=== PATIENT | male | born 1975 | race African-American/Black ===

== ENCOUNTER 2018-10-04 13:24 | Inpatient (IN) ==
[2018-10-04 15:09] LABS: Basophils # 0.1 10*3/uL (0.0-0.2); Basophils % 0.5 % (0.0-0.8); Eosinophils # 0.2 10*3/uL (0.0-0.87); Eosinophils % 1.7 % (0.00-10.9); Hematocrit 42.2 VOL% (42.0-52.0); Hemoglobin 13.2 GM/DL (14.0-18.0); Immature Granulocytes % 0.3 %; Immature Granulocytes Absolute 0.03 #; Lymphocytes # 2.5 10*3/uL (1.4-4.0); Lymphocytes % 25.4 % (21.2-54.2); Mean Corpuscular HGB Conc 31.3 GM/DL (32-36); Mean Corpuscular Hemoglobin 31 PG (27-34); Mean Corpuscular Volume 99.3 FL (87-102); Mean Platelet Volume 11.9 FL (9.6-12.0); Monocytes # 0.7 10*3/uL (0.11-0.8); Monocytes % 7.6 % (1.7-12.7); Neutrophils # 6.3 10*3/uL (1.4-7.4); Neutrophils % 64.5 % (38.7-73.9); Platelet Count 135 T/CUMM (130-400); Red Blood Count 4.25 MC/CUMM (3.8-5.5); Red Cell Distribution Width 13.4 % (9.3-17.3); White Blood Count 9.8 T/CUMM (4-12)
[2018-10-04 15:25] LABS: Albumin 4.1 G/DL (3.4-5.0); Bilirubin,Total 1.7 MG/DL (0.2-1.0); Calcium 8.7 MG/DL (8.5-10.1); Osmolality,Calculated 279.5 MOS/KG (273-304); Potassium 4.8 MMOL/L (3.5-5.1)
[2018-10-04 18:27] LABS: Amorphous Crystals,Urine Occasional /HPF (Few); Apearance,Urine CLOUDY (Clear); Bilirubin,Urine Negative (Negative); Blood, Urine Negative (Negative); Glucose,Urine (UA) Negative (Negative); Ketones,Urine 5 mg/dL (Negative); Nitrite,Urine Negative (Negative); Protein,Urine >=500 MG/DL; Urine Color Yellow (Yellow); Urine Specific Gravity 1.028 (1.001-1.035); Urine Urobilinogen < 2.0 EU/DL (0.2-1.0)
[2018-10-04] MEDS ORDERED: ACETAMINOPHEN 325 MG TABLET PO PRN (18:54)
[2018-10-04] MEDS: ONDANSETRON 4 MG/2 ML VIAL IV PRN (20:45)
[2018-10-04] MEDS: SODIUM CHLORIDE 0.9% 1,000 ML IV SCH (20:45)
[2018-10-04] MEDS: LOSARTAN 25 MG TABLET PO SCH (22:25)
[2018-10-04] MEDS: CARVEDILOL 12.5 MG TABLET PO SCH (22:25)
[2018-10-04] MEDS: AMPICILLIN/SULBACTAM 3,000 MG in SODIUM CHLORIDE 0.9% 100 ML IV SCH (22:26)
[2018-10-04] MEDS: ENOXAPARIN 40 MG/0.4 ML SYRINGE SUBCUT SCH (22:26)
[2018-10-05] MEDS: AMPICILLIN/SULBACTAM 3,000 MG in SODIUM CHLORIDE 0.9% 100 ML IV SCH ×4 (03:41→20:50)
[2018-10-05] MEDS ORDERED: MORPHINE 4 MG/1 ML VIAL IV PRN (03:48)
[2018-10-05] MEDS: HYDROmorphone 2 MG/1 ML VIAL IV PRN (04:06)
[2018-10-05] MEDS: ONDANSETRON 4 MG/2 ML VIAL IV PRN (04:07)
[2018-10-05 05:25] LABS: Basophils # 0.1 10*3/uL (0.0-0.2); Basophils % 0.7 % (0.0-0.8); Eosinophils # 0.1 10*3/uL (0.0-0.87); Eosinophils % 1.3 % (0.00-10.9); Hematocrit 39.6 VOL% (42.0-52.0); Hemoglobin 12.4 GM/DL (14.0-18.0); Immature Granulocytes % 0.4 %; Immature Granulocytes Absolute 0.04 #; Lymphocytes # 2.9 10*3/uL (1.4-4.0); Lymphocytes % 27.3 % (21.2-54.2); Mean Corpuscular HGB Conc 31.3 GM/DL (32-36); Mean Corpuscular Hemoglobin 31 PG (27-34); Mean Corpuscular Volume 97.5 FL (87-102); Monocytes # 0.9 10*3/uL (0.11-0.8); Monocytes % 8.2 % (1.7-12.7); NRBC # 0.02 10*3/uL; Neutrophils # 6.6 10*3/uL (1.4-7.4); Neutrophils % 62.1 % (38.7-73.9); Platelet Count 137 T/CUMM (130-400); Red Blood Count 4.06 MC/CUMM (3.8-5.5); Red Cell Distribution Width 13.3 % (9.3-17.3); White Blood Count 10.6 T/CUMM (4-12)
[2018-10-05 05:50] LABS: Albumin 3.7 G/DL (3.4-5.0); Calcium 8.1 MG/DL (8.5-10.1); Osmolality,Calculated 276.8 MOS/KG (273-304); Potassium 4.3 MMOL/L (3.5-5.1); Risk Ratio 2.57; Thyroid Stimulating Hormone 6.04 uIU/ml (0.358-3.74); Total Protein 6.5 G/DL (6.4-8.3); VLDL CHOLESTEROL 13.2 MG/DL
[2018-10-05] MEDS: SPIRONOLACTONE 25 MG TABLET PO SCH (08:31)
[2018-10-05] MEDS: ATORVASTATIN 20 MG TABLET PO SCH (08:31)
[2018-10-05] MEDS: CARVEDILOL 12.5 MG TABLET PO SCH ×2 (08:31→17:03)
[2018-10-05 11:21] LABS: Hepatitis A Ab IgM Quant 0.12 Index; Hepatitis A Ab IgM Result Negative (Negative); Hepatitis B Core IgM Quant 0.12 Index; Hepatitis B Core IgM Result Negative (Negative); Hepatitis B Surface Ag Quant 0.15 Index; Hepatitis B Surface Ag Result Negative (Negative); Hepatitis C Virus Ab Quant 0.02 Index; Hepatitis C Virus Ab Result Negative (Negative)
[2018-10-05] MEDS: FUROSEMIDE 40 MG/4 ML VIAL IV SCH (15:10)
[2018-10-05] MEDS: LOSARTAN 25 MG TABLET PO SCH (20:49)
[2018-10-05] MEDS: ENOXAPARIN 40 MG/0.4 ML SYRINGE SUBCUT SCH (20:49)
[2018-10-05] MEDS: SODIUM CHLORIDE 0.9% 1,000 ML IV SCH (21:27)
[2018-10-06] MEDS: ONDANSETRON 4 MG/2 ML VIAL IV PRN ×3 (00:18→12:51)
[2018-10-06] MEDS: HYDROmorphone 2 MG/1 ML VIAL IV PRN ×2 (00:19→12:50)
[2018-10-06] MEDS: AMPICILLIN/SULBACTAM 3,000 MG in SODIUM CHLORIDE 0.9% 100 ML IV SCH ×3 (02:30→15:14)
[2018-10-06 04:49] LABS: Basophils # 0.1 10*3/uL (0.0-0.2); Basophils % 0.6 % (0.0-0.8); Eosinophils # 0.2 10*3/uL (0.0-0.87); Hematocrit 38.6 VOL% (42.0-52.0); Hemoglobin 12.1 GM/DL (14.0-18.0); Immature Granulocytes % 0.3 %; Immature Granulocytes Absolute 0.03 #; Lymphocytes % 22.8 % (21.2-54.2); Mean Corpuscular HGB Conc 31.3 GM/DL (32-36); Mean Corpuscular Hemoglobin 31 PG (27-34); Mean Platelet Volume 12.5 FL (9.6-12.0); Monocytes # 0.9 10*3/uL (0.11-0.8); Monocytes % 10.1 % (1.7-12.7); Neutrophils # 5.6 10*3/uL (1.4-7.4); Neutrophils % 64.2 % (38.7-73.9); Platelet Count 129 T/CUMM (130-400); Red Blood Count 3.94 MC/CUMM (3.8-5.5); Red Cell Distribution Width 13.2 % (9.3-17.3); White Blood Count 8.8 T/CUMM (4-12)
[2018-10-06 05:06] LABS: Calcium 7.8 MG/DL (8.5-10.1); Osmolality,Calculated 281.4 MOS/KG (273-304); Potassium 4.2 MMOL/L (3.5-5.1)
[2018-10-06 05:09] LABS: Albumin 3.6 G/DL (3.4-5.0); Bilirubin,Total 1.9 MG/DL (0.2-1.0); Calcium 7.8 MG/DL (8.5-10.1); Osmolality,Calculated 279.5 MOS/KG (273-304); Potassium 4.2 MMOL/L (3.5-5.1); Total Protein 6.4 G/DL (6.4-8.3)
[2018-10-06] MEDS: LEVOTHYROXINE 150 MCG TABLET PO SCH (06:08)
[2018-10-06] MEDS: CARVEDILOL 12.5 MG TABLET PO SCH ×2 (09:09→16:47)
[2018-10-06] MEDS: FUROSEMIDE 40 MG/4 ML VIAL IV SCH ×2 (09:09→15:11)
[2018-10-06] MEDS: SPIRONOLACTONE 25 MG TABLET PO SCH (09:09)
[2018-10-06] MEDS: ATORVASTATIN 20 MG TABLET PO SCH (09:09)
[2018-10-06] MEDS: ENOXAPARIN 40 MG/0.4 ML SYRINGE SUBCUT SCH (20:52)
[2018-10-06] MEDS: LOSARTAN 25 MG TABLET PO SCH (21:56)
[2018-10-07] MEDS: HYDROmorphone 2 MG/1 ML VIAL IV PRN ×3 (00:28→21:31)
[2018-10-07] MEDS: ONDANSETRON 4 MG/2 ML VIAL IV PRN ×2 (00:30→11:06)
[2018-10-07] MEDS: AMPICILLIN/SULBACTAM 3,000 MG in SODIUM CHLORIDE 0.9% 100 ML IV SCH ×4 (00:35→17:00)
[2018-10-07 04:59] LABS: Basophils # 0.1 10*3/uL (0.0-0.2); Basophils % 0.5 % (0.0-0.8); Eosinophils # 0.2 10*3/uL (0.0-0.87); Eosinophils % 2.4 % (0.00-10.9); Immature Granulocytes % 0.3 %; Immature Granulocytes Absolute 0.03 #; Lymphocytes # 2.5 10*3/uL (1.4-4.0); Lymphocytes % 25.5 % (21.2-54.2); Mean Corpuscular HGB Conc 31.6 GM/DL (32-36); Mean Corpuscular Hemoglobin 31 PG (27-34); Mean Corpuscular Volume 97.4 FL (87-102); Mean Platelet Volume 11.9 FL (9.6-12.0); Monocytes % 10.4 % (1.7-12.7); Neutrophils # 5.9 10*3/uL (1.4-7.4); Neutrophils % 60.9 % (38.7-73.9); Platelet Count 131 T/CUMM (130-400); Red Cell Distribution Width 13.2 % (9.3-17.3); White Blood Count 9.7 T/CUMM (4-12)
[2018-10-07 05:16] LABS: Albumin 3.6 G/DL (3.4-5.0); Bilirubin,Total 1.9 MG/DL (0.2-1.0); Calcium 7.8 MG/DL (8.5-10.1); Osmolality,Calculated 278.5 MOS/KG (273-304); Potassium 3.4 MMOL/L (3.5-5.1); Total Protein 6.4 G/DL (6.4-8.3)
[2018-10-07] MEDS: LEVOTHYROXINE 150 MCG TABLET PO SCH (05:54)
[2018-10-07] MEDS ORDERED: MIDAZOLAM 2 MG/2 ML VIAL IV ONE (09:16)
[2018-10-07] MEDS ORDERED: fentaNYL 100 MCG/2 ML VIAL IV ONE (09:16)
[2018-10-07] MEDS ORDERED: DIAZEPAM 5 MG TABLET PO ONE (09:16)
[2018-10-07 09:25] LABS: PT Patient Result 21.2 SECS
[2018-10-07] MEDS: FUROSEMIDE 40 MG/4 ML VIAL IV SCH ×2 (09:38→16:41)
[2018-10-07] MEDS: CARVEDILOL 12.5 MG TABLET PO SCH ×2 (09:38→16:42)
[2018-10-07] MEDS: SPIRONOLACTONE 25 MG TABLET PO SCH (09:40)
[2018-10-07] MEDS: ATORVASTATIN 20 MG TABLET PO SCH (09:41)
[2018-10-07] MEDS ORDERED: fentaNYL 100 MCG/2 ML VIAL ONE (10:49)
[2018-10-07] MEDS ORDERED: MIDAZOLAM 2 MG/2 ML VIAL ONE (10:49)
[2018-10-07] MEDS ORDERED: ONDANSETRON 4 MG/2 ML VIAL ONE (10:50)
[2018-10-07] MEDS ORDERED: POTASSIUM CHLORIDE 20 MEQ TABLET PO PRN (11:41)
[2018-10-07] MEDS: ENOXAPARIN 40 MG/0.4 ML SYRINGE SUBCUT SCH (21:30)
[2018-10-07] MEDS: LOSARTAN 25 MG TABLET PO SCH (21:31)
[2018-10-08] MEDS: AMPICILLIN/SULBACTAM 3,000 MG in SODIUM CHLORIDE 0.9% 100 ML IV SCH ×3 (00:09→11:13)
[2018-10-08] MEDS: HYDROmorphone 2 MG/1 ML VIAL IV PRN (03:52)
[2018-10-08] MEDS: LEVOTHYROXINE 150 MCG TABLET PO SCH (06:20)
[2018-10-08] MEDS: SPIRONOLACTONE 25 MG TABLET PO SCH (08:21)
[2018-10-08] MEDS: FUROSEMIDE 40 MG/4 ML VIAL IV SCH (08:22)
[2018-10-08] MEDS: CARVEDILOL 12.5 MG TABLET PO SCH (08:22)
[2018-10-08] MEDS: ATORVASTATIN 20 MG TABLET PO SCH (08:22)
[2018-10-08 12:06] VITALS: BP 93/70
== END 2018-10-08 13:42 | disposition home or self-care (01) | DRG 444 ==
LOC: N.ED 13:24 → N.EDINP 18:52 → N.3E 21:00
PROVIDERS: ADMIT Internal Medicine Geriatric Medicine; ATTEND Internal Medicine Geriatric Medicine

== ENCOUNTER 2018-10-09 21:53 | Observation (INO) ==
[2018-10-09] MEDS ORDERED: ONDANSETRON 4 MG/2 ML VIAL IV STA (22:52)
[2018-10-09 23:48] LABS: Basophils # 0.1 10*3/uL (0.0-0.2); Basophils % 0.6 % (0.0-0.8); Eosinophils # 0.3 10*3/uL (0.0-0.87); Hematocrit 43.9 VOL% (42.0-52.0); Hemoglobin 13.8 GM/DL (14.0-18.0); Immature Granulocytes % 0.3 %; Immature Granulocytes Absolute 0.03 #; Lymphocytes # 2.7 10*3/uL (1.4-4.0); Lymphocytes % 27.5 % (21.2-54.2); Mean Corpuscular HGB Conc 31.4 GM/DL (32-36); Mean Corpuscular Hemoglobin 31 PG (27-34); Mean Corpuscular Volume 98.4 FL (87-102); Mean Platelet Volume 11.8 FL (9.6-12.0); Monocytes # 0.7 10*3/uL (0.11-0.8); Monocytes % 6.8 % (1.7-12.7); Neutrophils % 61.8 % (38.7-73.9); Platelet Count 162 T/CUMM (130-400); Red Blood Count 4.46 MC/CUMM (3.8-5.5); Red Cell Distribution Width 13.3 % (9.3-17.3); White Blood Count 9.7 T/CUMM (4-12)
[2018-10-10 00:04] LABS: Bilirubin,Total 1.5 MG/DL (0.2-1.0); Calcium 8.4 MG/DL (8.5-10.1); Osmolality,Calculated 279.3 MOS/KG (273-304); Potassium 3.9 MMOL/L (3.5-5.1); Total Protein 7.6 G/DL (6.4-8.3)
[2018-10-10 00:13] LABS: Apearance,Urine CLEAR (Clear); Bilirubin,Urine Negative (Negative); Blood, Urine Negative (Negative); Glucose,Urine (UA) Negative (Negative); Ketones,Urine Negative (Negative); Nitrite,Urine Negative (Negative); Protein,Urine Negative; Urine Color Straw (Yellow); Urine Specific Gravity 1.004 (1.001-1.035); Urine Urobilinogen < 2.0 EU/DL (0.2-1.0)
[2018-10-10] MEDS ORDERED: KETOROLAC 30 MG/1 ML VIAL IV STA (00:13)
[2018-10-10] MEDS ORDERED: SODIUM CHLORIDE 0.9% 1,000 ML IV STA (00:22)
[2018-10-10] MEDS ORDERED: ONDANSETRON 4 MG/2 ML VIAL IV PRN (01:13)
[2018-10-10] MEDS ORDERED: LOPERAMIDE 2 MG CAPSULE PO PRN (01:16)
[2018-10-10] MEDS ORDERED: DICLOFENAC POTASSIUM 50 MG PO PRN (01:16)
[2018-10-10] MEDS ORDERED: FLUTICASONE 50 MCG NASAL SPRAY 16 GM BOTTLE BOTH NARES PRN (01:16)
[2018-10-10] MEDS ORDERED: diphenhydrAMINE CAP 25 MG CAPSULE PO PRN (01:16)
[2018-10-10] MEDS ORDERED: ACETAMINOPHEN 325 MG TABLET PO PRN (01:16)
[2018-10-10] MEDS: LEVOTHYROXINE 150 MCG TABLET PO SCH (06:21)
[2018-10-10 07:02] LABS: INR 1.6; PT Patient Result 17.2 SECS
[2018-10-10 07:14] LABS: Albumin 3.4 G/DL (3.4-5.0); Bilirubin,Total 2.2 MG/DL (0.2-1.0); Calcium 8.2 MG/DL (8.5-10.1); Osmolality,Calculated 277.4 MOS/KG (273-304); Potassium 3.7 MMOL/L (3.5-5.1); Total Protein 6.6 G/DL (6.4-8.3)
[2018-10-10] MEDS: CARVEDILOL 12.5 MG TABLET PO SCH ×2 (08:37→21:42)
[2018-10-10] MEDS: POTASSIUM CHLORIDE 20 MEQ TABLET PO SCH ×2 (08:39→21:45)
[2018-10-10] MEDS: MAGNESIUM CHLORIDE 64 MG TABLET PO SCH ×2 (08:40→21:43)
[2018-10-10] MEDS ORDERED: MAGNESIUM HYDROXIDE SUSP 30 ML UDCUP PO ONE (09:16)
[2018-10-10] MEDS ORDERED: MELOXICAM 7.5 MG TABLET PO SCH (12:00)
[2018-10-10] MEDS ORDERED: PANTOPRAZOLE 40 MG TABLET PO SCH (12:00)
[2018-10-10] MEDS ORDERED: ASCORBIC ACID 500 MG TABLET PO SCH (12:00)
[2018-10-10] MEDS ORDERED: ATORVASTATIN 20 MG TABLET PO SCH (12:00)
[2018-10-10] MEDS ORDERED: FUROSEMIDE 40 MG TABLET PO SCH (12:00)
[2018-10-10] MEDS: PROCHLORPERAZINE 5 MG TABLET PO SCH ×2 (12:09→21:42)
[2018-10-10] MEDS ORDERED: CETIRIZINE 10 MG TABLET PO SCH (18:00)
[2018-10-10] MEDS ORDERED: SPIRONOLACTONE 25 MG TABLET PO SCH (18:00)
[2018-10-10] MEDS ORDERED: ASPIRIN EC 81 MG TABLET PO SCH (18:00)
[2018-10-10] MEDS ORDERED: WARFARIN 5 MG TABLET PO SCH (18:00)
[2018-10-10] MEDS ORDERED: LOSARTAN 25 MG TABLET PO SCH (21:00)
[2018-10-10] MEDS ORDERED: NITROGLYCERIN SL 0.4 MG TABLET SL ONE (21:27)
[2018-10-10] MEDS ORDERED: NITROGLYCERIN SL 0.4 MG TABLET SL PRN (21:28)
[2018-10-10] MEDS ORDERED: ASPIRIN CHEW 81 MG TABLET PO ONE (21:29)
[2018-10-11] MEDS: LEVOTHYROXINE 150 MCG TABLET PO SCH (06:17)
[2018-10-11 07:36] VITALS: BP 106/88
[2018-10-11] MEDS: MAGNESIUM CHLORIDE 64 MG TABLET PO SCH (09:35)
[2018-10-11] MEDS: PROCHLORPERAZINE 5 MG TABLET PO SCH (09:35)
[2018-10-11] MEDS: POTASSIUM CHLORIDE 20 MEQ TABLET PO SCH (09:35)
[2018-10-11] MEDS: CARVEDILOL 12.5 MG TABLET PO SCH (09:35)
== END 2018-10-11 09:35 | disposition home or self-care (01) ==
LOC: N.ED 21:53 → N.3E 21:53 → SUATTDRO 10-10 01:13 → N.3E 10-10 02:07
PROVIDERS: ADMIT Internal Medicine Geriatric Medicine; ATTEND Emergency Medicine

== ENCOUNTER 2018-10-13 18:39 | Inpatient (IN) ==
[2018-10-13] MEDS ORDERED: ONDANSETRON 4 MG/2 ML VIAL IV STA (22:44)
[2018-10-13] MEDS ORDERED: AMPICILLIN/SULBACTAM 3,000 MG in SODIUM CHLORIDE 0.9% 100 ML IV STA (22:44)
[2018-10-13] MEDS ORDERED: METOCLOPRAMIDE 10 MG/2 ML VIAL IV STA (22:44)
[2018-10-13] MEDS ORDERED: SODIUM CHLORIDE 0.9% 1,000 ML IV STA (22:44)
[2018-10-13] MEDS ORDERED: PANTOPRAZOLE 40 MG VIAL IV STA (22:44)
[2018-10-13] MEDS ORDERED: DICYCLOMINE 20 MG/2 ML AMP IM ONE (22:50)
[2018-10-14 01:42] LABS: Apearance,Urine CLEAR (Clear); Bilirubin,Urine Negative (Negative); Blood, Urine Negative (Negative); Glucose,Urine (UA) Negative (Negative); Hyaline Casts,Urine 1 /LPF (0-3); Ketones,Urine 20 mg/dL (Negative); Mucus,Urine Many /LPF (Occasional); Nitrite,Urine Negative (Negative); Protein,Urine >=500 MG/DL; RBC,Urine 3 /HPF (0-4); Urine Color Amber (Yellow); Urine Specific Gravity 1.024 (1.001-1.035); WBC,Urine 1 /HPF (0-6)
[2018-10-14 02:00] LABS: Basophils # 0.1 10*3/uL (0.0-0.2); Basophils % 0.4 % (0.0-0.8); Eosinophils # 0.2 10*3/uL (0.0-0.87); Eosinophils % 1.4 % (0.00-10.9); Hematocrit 45.5 VOL% (42.0-52.0); Hemoglobin 14.1 GM/DL (14.0-18.0); Immature Granulocytes % 0.4 %; Immature Granulocytes Absolute 0.05 #; Lymphocytes # 2.6 10*3/uL (1.4-4.0); Lymphocytes % 23.6 % (21.2-54.2); Mean Corpuscular Volume 99.3 FL (87-102); Mean Platelet Volume 12.4 FL (9.6-12.0); Monocytes % 8.2 % (1.7-12.7); Platelet Count 159 T/CUMM (130-400); Red Blood Count 4.58 MC/CUMM (3.8-5.5); Red Cell Distribution Width 13.5 % (9.3-17.3); White Blood Count 11.2 T/CUMM (4-12)
[2018-10-14 02:12] LABS: Alanine Aminotransferase 198 U/L (16-61); Albumin 3.9 G/DL (3.4-5.0); Alkaline Phosphatase 145 U/L (45-117); Amylase 35 U/L (25-115); Aspartate Amino Transferase 101 U/L (0-37); Blood Urea Nitrogen 16 MG/DL (7-18); Calcium 8.9 MG/DL (8.5-10.1); Glucose 84 MG/DL (74-106); Osmolality,Calculated 276.5 MOS/KG (273-304); Total Protein 7.2 G/DL (6.4-8.3); Troponin I 0.033 NG/ML (0.00-0.045)
[2018-10-14] MEDS ORDERED: MEPERIDINE 25 MG/1 ML VIAL IV STA (04:27)
[2018-10-14] MEDS ORDERED: PROMETHAZINE 25 MG/1 ML VIAL IM STA (04:27)
[2018-10-14] MEDS ORDERED: PROMETHAZINE 25 MG/1 ML VIAL ONE (04:34)
[2018-10-14] MEDS ORDERED: MEPERIDINE 25 MG/1 ML VIAL ONE (04:35)
[2018-10-14] MEDS: SODIUM CHLORIDE 0.9% 1,000 ML IV SCH ×2 (05:47→15:00)
[2018-10-14] MEDS ORDERED: NICOTINE 21 MG/24 HR PATCH TRANSDERM PRN (06:10)
[2018-10-14] MEDS: cefTRIAXone 1,000 MG in SYRINGE 1 EACH IV SCH (06:23)
[2018-10-14] MEDS: metroNIDAZOLE INJ 500 MG in PREMIX 1 EACH IV SCH ×2 (06:24→17:30)
[2018-10-14] MEDS: PANTOPRAZOLE 40 MG TABLET PO SCH (08:00)
[2018-10-14 08:08] LABS: INR 2.2
[2018-10-14 08:09] LABS: PT Patient Result 24.1 SECS
[2018-10-14] MEDS: ACETAMINOPHEN 325 MG TABLET PO PRN (18:01)
[2018-10-15] MEDS: SODIUM CHLORIDE 0.9% 1,000 ML IV SCH ×4 (00:57→23:53)
[2018-10-15] MEDS: MEPERIDINE 25 MG/1 ML VIAL IV PRN ×3 (00:59→23:49)
[2018-10-15] MEDS: ONDANSETRON 4 MG/2 ML VIAL IV PRN ×3 (01:00→21:09)
[2018-10-15 05:41] LABS: Basophils # 0.1 10*3/uL (0.0-0.2); Basophils % 0.6 % (0.0-0.8); Eosinophils # 0.2 10*3/uL (0.0-0.87); Eosinophils % 1.9 % (0.00-10.9); Hematocrit 38.6 VOL% (42.0-52.0); Hemoglobin 12.3 GM/DL (14.0-18.0); Immature Granulocytes % 1.1 %; Immature Granulocytes Absolute 0.09 #; Lymphocytes # 1.9 10*3/uL (1.4-4.0); Lymphocytes % 23.7 % (21.2-54.2); Mean Corpuscular HGB Conc 31.9 GM/DL (32-36); Mean Corpuscular Volume 97.2 FL (87-102); Mean Platelet Volume 12.6 FL (9.6-12.0); Monocytes % 10.1 % (1.7-12.7); Neutrophils % 62.6 % (38.7-73.9); Platelet Count 137 T/CUMM (130-400); Red Blood Count 3.97 MC/CUMM (3.8-5.5); Red Cell Distribution Width 13.4 % (9.3-17.3); White Blood Count 7.9 T/CUMM (4-12)
[2018-10-15 05:49] LABS: INR 2.3
[2018-10-15 06:02] LABS: PT Patient Result 24.4 SECS
[2018-10-15 06:05] LABS: Albumin 3.3 G/DL (3.4-5.0); Bilirubin,Total 1.7 MG/DL (0.2-1.0); Calcium 8.1 MG/DL (8.5-10.1); Osmolality,Calculated 275.5 MOS/KG (273-304); Risk Ratio 2.32; VLDL CHOLESTEROL 11.6 MG/DL
[2018-10-15] MEDS: cefTRIAXone 1,000 MG in SYRINGE 1 EACH IV SCH (06:20)
[2018-10-15] MEDS: metroNIDAZOLE INJ 500 MG in PREMIX 1 EACH IV SCH ×2 (06:21→18:41)
[2018-10-15] MEDS ORDERED: SODIUM CHLORIDE 0.9% 1,000 ML IV PRN (07:25)
[2018-10-15] MEDS ORDERED: INDOMETHACIN SUPP 50 MG SUPP RECTAL ONE (08:00)
[2018-10-15] MEDS ORDERED: LACTATED RINGERS 500 ML IV SCH (08:00)
[2018-10-15] MEDS ORDERED: GLUCAGON 1 MG VIAL ONE (11:43)
[2018-10-15] MEDS ORDERED: PHENYLEPHRINE DRIP 20 MG/250 ML PREMIX IV ONE (11:57)
[2018-10-15] MEDS ORDERED: ETOMIDATE 40 MG/20 ML VIAL IV ONE (11:57)
[2018-10-15] MEDS ORDERED: ONDANSETRON 4 MG/2 ML VIAL ONE (11:57)
[2018-10-15] MEDS ORDERED: ROCURONIUM 100 MG/10 ML VIAL IV ONE (11:57)
[2018-10-15] MEDS ORDERED: GLYCOPYRROLATE 0.4 MG/2 ML VIAL ONE (11:57)
[2018-10-15] MEDS ORDERED: NEOSTIGMINE 10 MG/10 ML VIAL ONE ×2 (11:58)
[2018-10-15 11:59] LABS: INR 1.5; PT Patient Result 16.7 SECS
[2018-10-15] MEDS ORDERED: MIDAZOLAM 2 MG/2 ML VIAL ONE (12:00)
[2018-10-15] MEDS ORDERED: fentaNYL 100 MCG/2 ML VIAL ONE (12:00)
[2018-10-15] MEDS ORDERED: HEPARIN/NACL 0.9% 2 UNITS/ML 500 ML IV ONE (12:09)
[2018-10-15] MEDS ORDERED: SUGAMMADEX 200 MG/2 ML VIAL IV ONE (13:39)
[2018-10-15] MEDS ORDERED: SEVOFLURANE 1 UNIT/15 MINUTE INH ONE (14:04)
[2018-10-15] MEDS ORDERED: SUCCINYLCHOLINE 200 MG/10 ML VIAL ONE (14:04)
[2018-10-15] MEDS: PANTOPRAZOLE 40 MG TABLET PO SCH (18:06)
[2018-10-15] MEDS: WARFARIN 5 MG TABLET PO SCH (18:06)
[2018-10-15] MEDS: SPIRONOLACTONE 25 MG TABLET PO SCH (18:06)
[2018-10-15] MEDS: ASPIRIN EC 81 MG TABLET PO SCH (18:06)
[2018-10-15] MEDS ORDERED: CARVEDILOL 12.5 MG TABLET PO SCH (21:00)
[2018-10-15] MEDS: LOSARTAN 25 MG TABLET PO SCH (21:02)
[2018-10-15] MEDS: CARVEDILOL 6.25 MG TABLET PO SCH (21:02)
[2018-10-16] MEDS: cefTRIAXone 1,000 MG in SYRINGE 1 EACH IV SCH (06:19)
[2018-10-16] MEDS: metroNIDAZOLE INJ 500 MG in PREMIX 1 EACH IV SCH ×2 (06:20→18:09)
[2018-10-16] MEDS: LEVOTHYROXINE 150 MCG TABLET PO SCH (06:20)
[2018-10-16 08:14] LABS: Basophils # 0.1 10*3/uL (0.0-0.2); Basophils % 0.7 % (0.0-0.8); Eosinophils # 0.2 10*3/uL (0.0-0.87); Eosinophils % 2.4 % (0.00-10.9); Hematocrit 37.5 VOL% (42.0-52.0); Hemoglobin 11.7 GM/DL (14.0-18.0); Immature Granulocytes % 0.3 %; Immature Granulocytes Absolute 0.02 #; Lymphocytes # 1.6 10*3/uL (1.4-4.0); Lymphocytes % 22.6 % (21.2-54.2); Mean Corpuscular HGB Conc 31.2 GM/DL (32-36); Mean Corpuscular Volume 99.2 FL (87-102); Mean Platelet Volume 12.6 FL (9.6-12.0); Monocytes % 10.1 % (1.7-12.7); Neutrophils % 63.9 % (38.7-73.9); Platelet Count 141 T/CUMM (130-400); Red Blood Count 3.78 MC/CUMM (3.8-5.5); Red Cell Distribution Width 13.6 % (9.3-17.3); White Blood Count 7.1 T/CUMM (4-12)
[2018-10-16] MEDS: ONDANSETRON 4 MG/2 ML VIAL IV PRN ×3 (08:34→21:33)
[2018-10-16] MEDS: MEPERIDINE 25 MG/1 ML VIAL IV PRN ×3 (08:37→21:33)
[2018-10-16 08:42] LABS: Albumin 3.4 G/DL (3.4-5.0); Bilirubin,Total 1.3 MG/DL (0.2-1.0); Calcium 7.8 MG/DL (8.5-10.1); Osmolality,Calculated 281.3 MOS/KG (273-304); Total Protein 6.3 G/DL (6.4-8.3)
[2018-10-16] MEDS: SODIUM CHLORIDE 0.9% 1,000 ML IV SCH ×2 (09:10→21:38)
[2018-10-16] MEDS ORDERED: diphenhydrAMINE CAP 25 MG CAPSULE PO PRN (11:05)
[2018-10-16] MEDS ORDERED: ATORVASTATIN 20 MG TABLET PO SCH (12:00)
[2018-10-16] MEDS: CARVEDILOL 6.25 MG TABLET PO SCH ×2 (12:16→20:28)
[2018-10-16] MEDS: PANTOPRAZOLE 40 MG TABLET PO SCH (12:17)
[2018-10-16] MEDS: SPIRONOLACTONE 25 MG TABLET PO SCH (18:08)
[2018-10-16] MEDS: CETIRIZINE 10 MG TABLET PO SCH (18:09)
[2018-10-16] MEDS: ASPIRIN EC 81 MG TABLET PO SCH (18:09)
[2018-10-16] MEDS: WARFARIN 5 MG TABLET PO SCH (18:09)
[2018-10-16] MEDS: LOSARTAN 25 MG TABLET PO SCH (20:29)
[2018-10-17] MEDS: SODIUM CHLORIDE 0.9% 1,000 ML IV SCH ×2 (04:33→21:55)
[2018-10-17] MEDS: metroNIDAZOLE INJ 500 MG in PREMIX 1 EACH IV SCH (05:59)
[2018-10-17] MEDS: cefTRIAXone 1,000 MG in SYRINGE 1 EACH IV SCH (06:01)
[2018-10-17] MEDS: MEPERIDINE 25 MG/1 ML VIAL IV PRN ×3 (06:01→21:54)
[2018-10-17] MEDS: ONDANSETRON 4 MG/2 ML VIAL IV PRN ×3 (06:01→20:53)
[2018-10-17] MEDS: LEVOTHYROXINE 150 MCG TABLET PO SCH (06:01)
[2018-10-17 06:52] LABS: INR 3.1
[2018-10-17 06:54] LABS: PT Patient Result 33.3 SECS
[2018-10-17 07:23] LABS: Basophils % 0.6 % (0.0-0.8); Eosinophils # 0.2 10*3/uL (0.0-0.87); Hematocrit 40.6 VOL% (42.0-52.0); Hemoglobin 12.3 GM/DL (14.0-18.0); Immature Granulocytes % 0.3 %; Immature Granulocytes Absolute 0.02 #; Lymphocytes # 2.1 10*3/uL (1.4-4.0); Lymphocytes % 29.7 % (21.2-54.2); Mean Corpuscular HGB Conc 30.3 GM/DL (32-36); Mean Corpuscular Volume 100.5 FL (87-102); Mean Platelet Volume 12.7 FL (9.6-12.0); Monocytes % 9.7 % (1.7-12.7); Neutrophils % 56.7 % (38.7-73.9); Platelet Count 142 T/CUMM (130-400); Red Blood Count 4.04 MC/CUMM (3.8-5.5); Red Cell Distribution Width 13.6 % (9.3-17.3); White Blood Count 7.1 T/CUMM (4-12)
[2018-10-17 07:43] LABS: Albumin 3.4 G/DL (3.4-5.0); Bilirubin,Total 1.2 MG/DL (0.2-1.0); Osmolality,Calculated 280.3 MOS/KG (273-304)
[2018-10-17] MEDS: CARVEDILOL 6.25 MG TABLET PO SCH ×2 (12:25→21:51)
[2018-10-17] MEDS: PANTOPRAZOLE 40 MG TABLET PO SCH (12:26)
[2018-10-17] MEDS: CETIRIZINE 10 MG TABLET PO SCH (18:02)
[2018-10-17] MEDS: SPIRONOLACTONE 25 MG TABLET PO SCH (18:02)
[2018-10-17] MEDS: ASPIRIN EC 81 MG TABLET PO SCH (18:02)
[2018-10-17] MEDS: LOSARTAN 25 MG TABLET PO SCH (21:51)
[2018-10-18] MEDS: SODIUM CHLORIDE 0.9% 1,000 ML IV SCH (01:53)
[2018-10-18] MEDS: ONDANSETRON 4 MG/2 ML VIAL IV PRN ×4 (02:01→20:21)
[2018-10-18 06:18] LABS: Basophils # 0.1 10*3/uL (0.0-0.2); Basophils % 0.8 % (0.0-0.8); Eosinophils # 0.2 10*3/uL (0.0-0.87); Hematocrit 39.9 VOL% (42.0-52.0); Hemoglobin 12.3 GM/DL (14.0-18.0); Immature Granulocytes % 0.3 %; Immature Granulocytes Absolute 0.02 #; Mean Corpuscular HGB Conc 30.8 GM/DL (32-36); Mean Corpuscular Volume 100.8 FL (87-102); Mean Platelet Volume 12.9 FL (9.6-12.0); Monocytes % 9.8 % (1.7-12.7); Neutrophils % 61.1 % (38.7-73.9); Platelet Count 151 T/CUMM (130-400); Red Blood Count 3.96 MC/CUMM (3.8-5.5); Red Cell Distribution Width 13.5 % (9.3-17.3); White Blood Count 7.6 T/CUMM (4-12)
[2018-10-18] MEDS: LEVOTHYROXINE 150 MCG TABLET PO SCH (06:24)
[2018-10-18] MEDS: MEPERIDINE 25 MG/1 ML VIAL IV PRN ×3 (06:33→20:22)
[2018-10-18 06:34] LABS: PT Patient Result 43.4 SECS
[2018-10-18 06:37] LABS: Albumin 3.1 G/DL (3.4-5.0); Bilirubin,Total 2.1 MG/DL (0.2-1.0); Calcium 8.4 MG/DL (8.5-10.1); Osmolality,Calculated 277.4 MOS/KG (273-304); Total Protein 6.1 G/DL (6.4-8.3)
[2018-10-18] MEDS: CARVEDILOL 6.25 MG TABLET PO SCH ×2 (09:36→21:02)
[2018-10-18] MEDS: PANTOPRAZOLE 40 MG TABLET PO SCH (09:36)
[2018-10-18] MEDS: POLYETHYLENE GLYCOL POWDER 17 GM PACK PO PRN (09:37)
[2018-10-18] MEDS: DOCUSATE SODIUM 100 MG CAPSULE PO PRN ×2 (09:37→21:02)
[2018-10-18] MEDS: FUROSEMIDE 40 MG TABLET PO SCH (11:39)
[2018-10-18] MEDS: CALCIUM CARBONATE CHEW 500 MG TABLET PO PRN (13:42)
[2018-10-18] MEDS ORDERED: GLYCERIN ADULT SUPP RECTAL PRN (14:09)
[2018-10-18] MEDS: CETIRIZINE 10 MG TABLET PO SCH (17:19)
[2018-10-18] MEDS: SPIRONOLACTONE 25 MG TABLET PO SCH (17:19)
[2018-10-18] MEDS: ASPIRIN EC 81 MG TABLET PO SCH (17:19)
[2018-10-18] MEDS: LOSARTAN 25 MG TABLET PO SCH (21:02)
[2018-10-19] MEDS: MEPERIDINE 25 MG/1 ML VIAL IV PRN ×3 (04:57→21:10)
[2018-10-19] MEDS: ONDANSETRON 4 MG/2 ML VIAL IV PRN ×3 (04:57→21:05)
[2018-10-19 05:01] LABS: Basophils # 0.1 10*3/uL (0.0-0.2); Basophils % 0.7 % (0.0-0.8); Eosinophils # 0.1 10*3/uL (0.0-0.87); Eosinophils % 1.7 % (0.00-10.9); Hematocrit 39.4 VOL% (42.0-52.0); Hemoglobin 12.2 GM/DL (14.0-18.0); Immature Granulocytes % 0.3 %; Immature Granulocytes Absolute 0.02 #; Lymphocytes % 26.3 % (21.2-54.2); Mean Corpuscular Volume 99.7 FL (87-102); Mean Platelet Volume 12.5 FL (9.6-12.0); Monocytes % 12.3 % (1.7-12.7); Neutrophils % 58.7 % (38.7-73.9); Platelet Count 142 T/CUMM (130-400); Red Blood Count 3.95 MC/CUMM (3.8-5.5); Red Cell Distribution Width 13.5 % (9.3-17.3); White Blood Count 7.6 T/CUMM (4-12)
[2018-10-19 05:13] LABS: PT Patient Result 42.9 SECS
[2018-10-19 05:36] LABS: Calcium 8.3 MG/DL (8.5-10.1); Osmolality,Calculated 275.5 MOS/KG (273-304)
[2018-10-19] MEDS: LEVOTHYROXINE 150 MCG TABLET PO SCH (06:09)
[2018-10-19 08:48] LABS: Bilirubin,Direct 0.29 MG/DL (0.0-0.20); Bilirubin,Indirect 0.8 MG/DL (0.0-1.0); Bilirubin,Total 1.1 MG/DL (0.2-1.0); Total Protein 6.2 G/DL (6.4-8.3)
[2018-10-19] MEDS: PANTOPRAZOLE 40 MG TABLET PO SCH (09:06)
[2018-10-19] MEDS: CALCIUM CARBONATE CHEW 500 MG TABLET PO PRN ×2 (09:06→19:32)
[2018-10-19] MEDS: POLYETHYLENE GLYCOL POWDER 17 GM PACK PO PRN (09:06)
[2018-10-19] MEDS: CARVEDILOL 6.25 MG TABLET PO SCH ×2 (09:06→21:05)
[2018-10-19] MEDS: ACETAMINOPHEN 325 MG TABLET PO PRN ×2 (09:06→17:41)
[2018-10-19] MEDS: FUROSEMIDE 40 MG TABLET PO SCH (11:30)
[2018-10-19] MEDS: SODIUM CHLORIDE 0.9% 1,000 ML IV SCH (13:51)
[2018-10-19] MEDS: CETIRIZINE 10 MG TABLET PO SCH (17:41)
[2018-10-19] MEDS: SPIRONOLACTONE 25 MG TABLET PO SCH (17:41)
[2018-10-19] MEDS: ASPIRIN EC 81 MG TABLET PO SCH (17:41)
[2018-10-19] MEDS: LOSARTAN 25 MG TABLET PO SCH (21:04)
[2018-10-20] MEDS: MEPERIDINE 25 MG/1 ML VIAL IV PRN ×4 (01:30→22:01)
[2018-10-20] MEDS: ONDANSETRON 4 MG/2 ML VIAL IV PRN ×4 (01:31→20:42)
[2018-10-20 04:53] LABS: Albumin 3.3 G/DL (3.4-5.0); Bilirubin,Direct 0.68 MG/DL (0.0-0.20); Bilirubin,Indirect 1.1 MG/DL (0.0-1.0); Bilirubin,Total 1.8 MG/DL (0.2-1.0); Total Protein 6.1 G/DL (6.4-8.3)
[2018-10-20 04:55] LABS: Basophils # 0.1 10*3/uL (0.0-0.2); Basophils % 0.8 % (0.0-0.8); Eosinophils # 0.1 10*3/uL (0.0-0.87); Eosinophils % 1.4 % (0.00-10.9); Hematocrit 39.1 VOL% (42.0-52.0); Hemoglobin 12.4 GM/DL (14.0-18.0); Immature Granulocytes % 0.4 %; Immature Granulocytes Absolute 0.03 #; Lymphocytes # 1.7 10*3/uL (1.4-4.0); Lymphocytes % 21.6 % (21.2-54.2); Mean Corpuscular HGB Conc 31.7 GM/DL (32-36); Mean Platelet Volume 12.7 FL (9.6-12.0); Monocytes % 11.4 % (1.7-12.7); Neutrophils % 64.4 % (38.7-73.9); Platelet Count 140 T/CUMM (130-400); Red Blood Count 3.95 MC/CUMM (3.8-5.5); Red Cell Distribution Width 13.7 % (9.3-17.3); White Blood Count 7.9 T/CUMM (4-12)
[2018-10-20 05:02] LABS: Calcium 8.1 MG/DL (8.5-10.1); Osmolality,Calculated 276.5 MOS/KG (273-304)
[2018-10-20] MEDS: LEVOTHYROXINE 150 MCG TABLET PO SCH (06:13)
[2018-10-20] MEDS: POLYETHYLENE GLYCOL POWDER 17 GM PACK PO SCH (10:11)
[2018-10-20] MEDS: CARVEDILOL 6.25 MG TABLET PO SCH ×3 (10:14→21:51)
[2018-10-20] MEDS: DOCUSATE SODIUM 100 MG CAPSULE PO SCH ×2 (10:14)
[2018-10-20] MEDS: PANTOPRAZOLE 40 MG TABLET PO SCH (10:14)
[2018-10-20] MEDS: SODIUM CHLORIDE 0.9% 1,000 ML IV SCH (10:15)
[2018-10-20] MEDS: FUROSEMIDE 40 MG TABLET PO SCH (12:55)
[2018-10-20] MEDS: HYDROcod/ACETAMIN 7.5-325 MG/15 ML UDCUP PO PRN (12:57)
[2018-10-20 13:57] LABS: INR 4.4
[2018-10-20 13:58] LABS: PT Patient Result 46.8 SECS
[2018-10-20] MEDS ORDERED: ASPIRIN CHEW 81 MG TABLET PO ONE ×2 (15:57→15:59)
[2018-10-20] MEDS: SUCRALFATE 1 GM/10 ML UDCUP PO SCH ×2 (16:25→21:50)
[2018-10-20] MEDS: CETIRIZINE 10 MG TABLET PO SCH (17:21)
[2018-10-20] MEDS: SPIRONOLACTONE 25 MG TABLET PO SCH (17:21)
[2018-10-20] MEDS: ASPIRIN EC 81 MG TABLET PO SCH (17:21)
[2018-10-20] MEDS: DOCUSATE SODIUM 100 MG/10 ML UDCUP PO SCH (21:50)
[2018-10-20] MEDS: LOSARTAN 25 MG TABLET PO SCH (21:51)
[2018-10-21] MEDS: MEPERIDINE 25 MG/1 ML VIAL IV PRN ×5 (05:16→22:51)
[2018-10-21 05:41] LABS: Basophils # 0.1 10*3/uL (0.0-0.2); Basophils % 0.6 % (0.0-0.8); Eosinophils # 0.2 10*3/uL (0.0-0.87); Eosinophils % 1.7 % (0.00-10.9); Hematocrit 39.3 VOL% (42.0-52.0); Hemoglobin 12.2 GM/DL (14.0-18.0); Immature Granulocytes % 0.3 %; Immature Granulocytes Absolute 0.03 #; Lymphocytes % 23.4 % (21.2-54.2); Mean Corpuscular Volume 99.2 FL (87-102); Mean Platelet Volume 12.6 FL (9.6-12.0); Monocytes % 11.1 % (1.7-12.7); Neutrophils % 62.9 % (38.7-73.9); Platelet Count 148 T/CUMM (130-400); Red Blood Count 3.96 MC/CUMM (3.8-5.5); White Blood Count 8.6 T/CUMM (4-12)
[2018-10-21 05:58] LABS: Calcium 8.3 MG/DL (8.5-10.1); Osmolality,Calculated 275.5 MOS/KG (273-304)
[2018-10-21] MEDS: SODIUM CHLORIDE 0.9% 1,000 ML IV SCH (05:59)
[2018-10-21 06:00] LABS: INR 4.2
[2018-10-21 06:04] LABS: PT Patient Result 44.9 SECS
[2018-10-21] MEDS: LEVOTHYROXINE 150 MCG TABLET PO SCH (06:16)
[2018-10-21] MEDS: FUROSEMIDE 40 MG/4 ML VIAL IV SCH ×2 (08:45→17:36)
[2018-10-21] MEDS: ONDANSETRON 4 MG/2 ML VIAL IV PRN ×2 (08:56→17:48)
[2018-10-21] MEDS: CARVEDILOL 6.25 MG TABLET PO SCH ×3 (09:07→21:08)
[2018-10-21] MEDS: SUCRALFATE 1 GM/10 ML UDCUP PO SCH ×4 (09:07→21:08)
[2018-10-21] MEDS: POLYETHYLENE GLYCOL POWDER 17 GM PACK PO SCH (09:07)
[2018-10-21] MEDS: DOCUSATE SODIUM 100 MG/10 ML UDCUP PO SCH ×2 (09:07→21:08)
[2018-10-21] MEDS: LANSOPRAZOLE ODT 30 MG TABLET PO SCH (09:07)
[2018-10-21] MEDS: URSODIOL 300 MG CAPSULE PO SCH ×2 (09:07→21:08)
[2018-10-21] MEDS: SPIRONOLACTONE 25 MG TABLET PO SCH (17:44)
[2018-10-21] MEDS: DICYCLOMINE 10 MG CAPSULE PO SCH ×2 (17:44→21:08)
[2018-10-21] MEDS: CETIRIZINE 10 MG TABLET PO SCH (17:44)
[2018-10-21] MEDS: ASPIRIN EC 81 MG TABLET PO SCH (17:44)
[2018-10-21] MEDS: LOSARTAN 25 MG TABLET PO SCH (21:08)
[2018-10-22] MEDS: SUCRALFATE 1 GM/10 ML UDCUP PO SCH ×5 (02:17→20:23)
[2018-10-22] MEDS: DOCUSATE SODIUM 100 MG/10 ML UDCUP PO SCH ×3 (02:18→20:23)
[2018-10-22] MEDS: SODIUM CHLORIDE 0.9% 1,000 ML IV SCH ×2 (02:21→20:44)
[2018-10-22] MEDS: MEPERIDINE 25 MG/1 ML VIAL IV PRN ×3 (04:06→20:31)
[2018-10-22] MEDS: ONDANSETRON 4 MG/2 ML VIAL IV PRN ×3 (04:06→17:38)
[2018-10-22 04:28] LABS: Basophils # 0.1 10*3/uL (0.0-0.2); Basophils % 0.6 % (0.0-0.8); Eosinophils # 0.1 10*3/uL (0.0-0.87); Eosinophils % 1.4 % (0.00-10.9); Hemoglobin 12.6 GM/DL (14.0-18.0); Immature Granulocytes % 0.2 %; Immature Granulocytes Absolute 0.02 #; Lymphocytes # 2.2 10*3/uL (1.4-4.0); Lymphocytes % 22.8 % (21.2-54.2); Mean Corpuscular HGB Conc 31.5 GM/DL (32-36); Mean Corpuscular Volume 97.6 FL (87-102); Mean Platelet Volume 12.4 FL (9.6-12.0); Monocytes % 11.2 % (1.7-12.7); Neutrophils % 63.8 % (38.7-73.9); Platelet Count 162 T/CUMM (130-400); White Blood Count 9.6 T/CUMM (4-12)
[2018-10-22 04:38] LABS: INR 3.6
[2018-10-22 04:44] LABS: PT Patient Result 38.5 SECS
[2018-10-22 04:59] LABS: Albumin 3.3 G/DL (3.4-5.0); Bilirubin,Direct 0.88 MG/DL (0.0-0.20); Bilirubin,Total 1.9 MG/DL (0.2-1.0); Calcium 8.2 MG/DL (8.5-10.1); Osmolality,Calculated 277.5 MOS/KG (273-304); Total Protein 6.2 G/DL (6.4-8.3)
[2018-10-22] MEDS: LEVOTHYROXINE 150 MCG TABLET PO SCH (06:17)
[2018-10-22] MEDS: FUROSEMIDE 40 MG/4 ML VIAL IV SCH ×2 (08:53→15:44)
[2018-10-22] MEDS: LANSOPRAZOLE ODT 30 MG TABLET PO SCH (08:53)
[2018-10-22] MEDS: CARVEDILOL 6.25 MG TABLET PO SCH ×2 (08:54→20:32)
[2018-10-22] MEDS: POLYETHYLENE GLYCOL POWDER 17 GM PACK PO SCH (09:43)
[2018-10-22] MEDS: URSODIOL 300 MG CAPSULE PO SCH ×2 (09:43→20:32)
[2018-10-22] MEDS: DICYCLOMINE 10 MG CAPSULE PO SCH (09:43)
[2018-10-22] MEDS: DICYCLOMINE 20 MG TABLET PO SCH ×2 (15:43→20:32)
[2018-10-22] MEDS: HYDROcod/ACETAMIN 7.5-325 MG/15 ML UDCUP PO PRN (17:37)
[2018-10-22] MEDS: SPIRONOLACTONE 25 MG TABLET PO SCH (17:38)
[2018-10-22] MEDS: CETIRIZINE 10 MG TABLET PO SCH (17:38)
[2018-10-22] MEDS: ASPIRIN EC 81 MG TABLET PO SCH (17:38)
[2018-10-22] MEDS: LOSARTAN 25 MG TABLET PO SCH (20:32)
[2018-10-23] MEDS: CALCIUM CARBONATE CHEW 500 MG TABLET PO PRN ×2 (00:01→13:20)
[2018-10-23] MEDS: ONDANSETRON 4 MG/2 ML VIAL IV PRN ×5 (00:01→19:46)
[2018-10-23] MEDS: MEPERIDINE 25 MG/1 ML VIAL IV PRN ×4 (00:02→19:29)
[2018-10-23] MEDS: LEVOTHYROXINE 150 MCG TABLET PO SCH (05:40)
[2018-10-23 07:08] LABS: PT Patient Result 60.7 SECS
[2018-10-23 07:13] LABS: INR 5.7
[2018-10-23] MEDS: SUCRALFATE 1 GM/10 ML UDCUP PO SCH ×2 (07:36→11:25)
[2018-10-23] MEDS: CARVEDILOL 6.25 MG TABLET PO SCH ×2 (08:34→22:09)
[2018-10-23 08:37] LABS: PT Patient Result 70.1 SECS
[2018-10-23 08:39] LABS: INR 6.6
[2018-10-23] MEDS: FUROSEMIDE 40 MG/4 ML VIAL IV SCH ×2 (09:49→15:54)
[2018-10-23] MEDS: LANSOPRAZOLE ODT 30 MG TABLET PO SCH (09:50)
[2018-10-23] MEDS: URSODIOL 300 MG CAPSULE PO SCH ×2 (09:51→22:09)
[2018-10-23] MEDS: POLYETHYLENE GLYCOL POWDER 17 GM PACK PO SCH (09:51)
[2018-10-23] MEDS: DICYCLOMINE 20 MG TABLET PO SCH ×3 (09:51→22:09)
[2018-10-23] MEDS: DOCUSATE SODIUM 100 MG/10 ML UDCUP PO SCH ×2 (09:51→22:09)
[2018-10-23] MEDS: HYDROcod/ACETAMIN 7.5-325 MG/15 ML UDCUP PO PRN (13:19)
[2018-10-23] MEDS: ASPIRIN EC 81 MG TABLET PO SCH (17:07)
[2018-10-23] MEDS: SPIRONOLACTONE 25 MG TABLET PO SCH (17:07)
[2018-10-23] MEDS: CETIRIZINE 10 MG TABLET PO SCH (17:08)
[2018-10-23] MEDS: LOSARTAN 25 MG TABLET PO SCH (22:09)
[2018-10-24] MEDS: ONDANSETRON 4 MG/2 ML VIAL IV PRN ×3 (04:19→13:22)
[2018-10-24] MEDS: MEPERIDINE 25 MG/1 ML VIAL IV PRN ×5 (04:21→21:15)
[2018-10-24 05:09] LABS: INR 2.4
[2018-10-24 05:11] LABS: PT Patient Result 25.5 SECS
[2018-10-24 05:21] LABS: Calcium 8.2 MG/DL (8.5-10.1); Osmolality,Calculated 274.7 MOS/KG (273-304)
[2018-10-24] MEDS: LEVOTHYROXINE 150 MCG TABLET PO SCH (06:32)
[2018-10-24] MEDS: FUROSEMIDE 40 MG/4 ML VIAL IV SCH ×2 (09:40→15:17)
[2018-10-24] MEDS: DOCUSATE SODIUM 100 MG/10 ML UDCUP PO SCH ×2 (09:41→21:17)
[2018-10-24] MEDS: URSODIOL 300 MG CAPSULE PO SCH ×2 (10:08→21:18)
[2018-10-24] MEDS: POLYETHYLENE GLYCOL POWDER 17 GM PACK PO SCH (10:08)
[2018-10-24] MEDS: CARVEDILOL 6.25 MG TABLET PO SCH ×2 (10:08→21:16)
[2018-10-24] MEDS: DICYCLOMINE 20 MG TABLET PO SCH ×3 (10:08→21:18)
[2018-10-24] MEDS: LANSOPRAZOLE ODT 30 MG TABLET PO SCH (10:09)
[2018-10-24] MEDS ORDERED: SCOPOLAMINE 1.5 MG PATCH TRANSDERM SCH (14:00)
[2018-10-24] MEDS: HYDROcod/ACETAMIN 7.5-325 MG/15 ML UDCUP PO PRN ×2 (16:14→16:17)
[2018-10-24] MEDS: CETIRIZINE 10 MG TABLET PO SCH (17:29)
[2018-10-24] MEDS: ASPIRIN EC 81 MG TABLET PO SCH (17:29)
[2018-10-24] MEDS: LOSARTAN 25 MG TABLET PO SCH (21:18)
[2018-10-25] MEDS: MEPERIDINE 25 MG/1 ML VIAL IV PRN ×2 (00:01→04:33)
[2018-10-25] MEDS: ONDANSETRON 4 MG/2 ML VIAL IV PRN ×2 (04:33→20:01)
[2018-10-25 05:32] LABS: Basophils # 0.1 10*3/uL (0.0-0.2); Basophils % 0.7 % (0.0-0.8); Eosinophils # 0.1 10*3/uL (0.0-0.87); Eosinophils % 1.6 % (0.00-10.9); Hematocrit 42.5 VOL% (42.0-52.0); Hemoglobin 13.4 GM/DL (14.0-18.0); Immature Granulocytes % 0.5 %; Immature Granulocytes Absolute 0.04 #; Lymphocytes # 1.7 10*3/uL (1.4-4.0); Lymphocytes % 19.9 % (21.2-54.2); Mean Corpuscular HGB Conc 31.5 GM/DL (32-36); Mean Corpuscular Volume 97.9 FL (87-102); Mean Platelet Volume 12.7 FL (9.6-12.0); Monocytes % 9.1 % (1.7-12.7); Neutrophils % 68.2 % (38.7-73.9); Platelet Count 175 T/CUMM (130-400); Red Blood Count 4.34 MC/CUMM (3.8-5.5); White Blood Count 8.6 T/CUMM (4-12)
[2018-10-25 06:04] LABS: PT Patient Result 22.1 SECS
[2018-10-25] MEDS: LEVOTHYROXINE 150 MCG TABLET PO SCH (06:10)
[2018-10-25] MEDS ORDERED: MEPERIDINE 25 MG/1 ML VIAL IV PRN (07:45)
[2018-10-25] MEDS: LANSOPRAZOLE ODT 30 MG TABLET PO SCH (09:22)
[2018-10-25] MEDS: URSODIOL 300 MG CAPSULE PO SCH (09:22)
[2018-10-25] MEDS: CARVEDILOL 6.25 MG TABLET PO SCH (09:22)
[2018-10-25] MEDS: SPIRONOLACTONE 25 MG TABLET PO SCH (09:22)
[2018-10-25] MEDS: POLYETHYLENE GLYCOL POWDER 17 GM PACK PO SCH (09:23)
[2018-10-25] MEDS: DICYCLOMINE 20 MG TABLET PO SCH ×3 (09:23→20:01)
[2018-10-25] MEDS: DOCUSATE SODIUM 100 MG/10 ML UDCUP PO SCH ×2 (09:23→20:00)
[2018-10-25] MEDS: FUROSEMIDE 40 MG/4 ML VIAL IV SCH (09:25)
[2018-10-25] MEDS: HYDROcod/ACETAMIN 7.5-325 MG/15 ML UDCUP PO PRN ×2 (09:38→20:00)
[2018-10-25 11:27] LABS: Albumin 3.6 G/DL (3.4-5.0); Bilirubin,Direct 0.62 MG/DL (0.0-0.20); Bilirubin,Indirect 1.5 MG/DL (0.0-1.0); Bilirubin,Total 2.1 MG/DL (0.2-1.0); Total Protein 6.4 G/DL (6.4-8.3)
[2018-10-25] MEDS: CALCIUM CARBONATE CHEW 500 MG TABLET PO PRN (14:12)
[2018-10-25] MEDS ORDERED: ACETAMINOPHEN 500 MG TABLET PO ONE (14:35)
[2018-10-25] MEDS: metOLazone 5 MG TABLET PO SCH (15:51)
[2018-10-25] MEDS: FUROSEMIDE 40 MG TABLET PO SCH (15:58)
[2018-10-25] MEDS ORDERED: WARFARIN 2.5 MG TABLET PO SCH (18:00)
[2018-10-25] MEDS: ASPIRIN EC 81 MG TABLET PO SCH (18:18)
[2018-10-25] MEDS: CETIRIZINE 10 MG TABLET PO SCH (18:18)
[2018-10-25] MEDS: CARVEDILOL 12.5 MG TABLET PO SCH (20:00)
[2018-10-25] MEDS: LOSARTAN 25 MG TABLET PO SCH (20:00)
[2018-10-26] MEDS: HYDROcod/ACETAMIN 7.5-325 MG/15 ML UDCUP PO PRN (04:29)
[2018-10-26] MEDS: ONDANSETRON 4 MG/2 ML VIAL IV PRN (04:32)
[2018-10-26] MEDS: LEVOTHYROXINE 150 MCG TABLET PO SCH (05:57)
[2018-10-26 08:00] VITALS: BP 130/73
[2018-10-26] MEDS: metOLazone 5 MG TABLET PO SCH (08:34)
[2018-10-26] MEDS: CARVEDILOL 12.5 MG TABLET PO SCH (08:35)
[2018-10-26] MEDS: POLYETHYLENE GLYCOL POWDER 17 GM PACK PO SCH (08:35)
[2018-10-26] MEDS: DOCUSATE SODIUM 100 MG/10 ML UDCUP PO SCH (08:35)
[2018-10-26] MEDS: FUROSEMIDE 40 MG TABLET PO SCH (08:35)
[2018-10-26] MEDS: SPIRONOLACTONE 25 MG TABLET PO SCH (08:35)
[2018-10-26] MEDS: DICYCLOMINE 20 MG TABLET PO SCH (08:35)
[2018-10-26] MEDS: LANSOPRAZOLE ODT 30 MG TABLET PO SCH (09:16)
== END 2018-10-26 11:00 | disposition home or self-care (01) | DRG 445 ==
LOC: N.EDINP 18:39 → N.ED 18:39 → SUATTDRO 10-14 04:21 → N.3E 10-14 05:07 → SUATTDRO 10-15 14:52
PROVIDERS: ADMIT Emergency Medicine; ATTEND Internal Medicine
PROC: ERCPWSP (ICD-10-PCS; 2018-10-15 11:35)

== ENCOUNTER 2018-11-16 18:08 | Observation (INO) ==
[2018-11-16] MEDS ORDERED: SODIUM CHLORIDE 0.9% 500 ML IV STA (22:13)
[2018-11-16] MEDS ORDERED: ALUM/MAG/SIMETH/LIDO VISC 1:1 30 ML BOTTLE PO STA (22:13)
[2018-11-16] MEDS ORDERED: ONDANSETRON 4 MG/2 ML VIAL IV STA (22:13)
[2018-11-16 23:10] LABS: Basophils % 0.5 % (0.0-0.8); Eosinophils % 0.4 % (0.00-10.9); Hemoglobin 15.6 GM/DL (14.0-18.0); Immature Granulocytes % 0.4 %; Immature Granulocytes Absolute 0.03 #; Lymphocytes # 1.6 10*3/uL (1.4-4.0); Lymphocytes % 21.8 % (21.2-54.2); Mean Corpuscular HGB Conc 32.5 GM/DL (32-36); Mean Corpuscular Volume 95.8 FL (87-102); Mean Platelet Volume 13.6 FL (9.6-12.0); Monocytes % 6.5 % (1.7-12.7); Neutrophils % 70.4 % (38.7-73.9); Platelet Count 128 T/CUMM (130-400); Red Blood Count 5.01 MC/CUMM (3.8-5.5); Red Cell Distribution Width 14.3 % (9.3-17.3); White Blood Count 7.5 T/CUMM (4-12)
[2018-11-16 23:24] LABS: Amorphous Crystals,Urine Occasional /HPF (Few); Apearance,Urine Slightly Hazy (Clear); Bacteria,Urine Occasional /HPF (Few); Blood, Urine Negative (Negative); Glucose,Urine (UA) Negative (Negative); Hyaline Casts,Urine 122 /LPF (0-3); Ketones,Urine 5 mg/dL (Negative); Mucus,Urine Few /LPF (Occasional); Nitrite,Urine Negative (Negative); Protein,Urine >=500 MG/DL; RBC,Urine 4 /HPF (0-4); Squamous Epithelial Cell,Urine Occasional /HPF (0-10); Urine Color Amber (Yellow); Urine Specific Gravity 1.019 (1.001-1.035); WBC,Urine 2 /HPF (0-6)
[2018-11-16 23:28] LABS: Bilirubin,Urine Small mg/dL (Negative)
[2018-11-17 00:12] LABS: Amylase 39 U/L (25-115)
[2018-11-17 00:44] LABS: Albumin 3.9 G/DL (3.4-5.0); Bilirubin,Total 3.6 MG/DL (0.2-1.0); Calcium 8.8 MG/DL (8.5-10.1); Osmolality,Calculated 273.1 MOS/KG (273-304); Total Protein 7.4 G/DL (6.4-8.3)
[2018-11-17] MEDS ORDERED: POTASSIUM CHLORIDE 20 MEQ TABLET PO STA (00:49)
[2018-11-17] MEDS ORDERED: ACETAMINOPHEN 325 MG TABLET PO PRN (03:00)
[2018-11-17] MEDS ORDERED: FLUTICASONE 50 MCG NASAL SPRAY 16 GM BOTTLE BOTH NARES PRN (03:04)
[2018-11-17] MEDS ORDERED: CALCIUM CARBONATE CHEW 500 MG TABLET PO PRN (03:04)
[2018-11-17] MEDS ORDERED: ONDANSETRON 4 MG TABLET PO SCH (03:30)
[2018-11-17] MEDS ORDERED: ONDANSETRON ODT 4 MG TABLET PO PRN (05:23)
[2018-11-17] MEDS: LEVOTHYROXINE 150 MCG TABLET PO SCH (06:40)
[2018-11-17 06:55] LABS: Basophils # 0.1 10*3/uL (0.0-0.2); Basophils % 0.8 % (0.0-0.8); Eosinophils # 0.1 10*3/uL (0.0-0.87); Eosinophils % 0.9 % (0.00-10.9); Hematocrit 41.6 VOL% (42.0-52.0); Hemoglobin 13.7 GM/DL (14.0-18.0); Immature Granulocytes % 0.3 %; Immature Granulocytes Absolute 0.02 #; Lymphocytes # 2.4 10*3/uL (1.4-4.0); Lymphocytes % 29.6 % (21.2-54.2); Mean Corpuscular HGB Conc 32.9 GM/DL (32-36); Mean Corpuscular Volume 94.3 FL (87-102); Monocytes % 10.5 % (1.7-12.7); Neutrophils % 57.9 % (38.7-73.9); Platelet Count 125 T/CUMM (130-400); Red Blood Count 4.41 MC/CUMM (3.8-5.5); Red Cell Distribution Width 14.1 % (9.3-17.3); White Blood Count 7.9 T/CUMM (4-12)
[2018-11-17] MEDS ORDERED: SODIUM PHOSPHATE ENEMA 133 ML BOTTLE RECTAL ONE (07:00)
[2018-11-17 07:05] LABS: INR 1.6; PT Patient Result 17.1 SECS
[2018-11-17 07:35] LABS: Albumin 3.5 G/DL (3.4-5.0); Bilirubin,Total 3.4 MG/DL (0.2-1.0); Calcium 8.4 MG/DL (8.5-10.1); Total Protein 6.8 G/DL (6.4-8.3)
[2018-11-17] MEDS ORDERED: PANTOPRAZOLE 40 MG TABLET PO SCH (09:00)
[2018-11-17] MEDS: POLYETHYLENE GLYCOL POWDER 17 GM PACK PO SCH (09:05)
[2018-11-17] MEDS: POTASSIUM CHLORIDE 20 MEQ TABLET PO PRN ×2 (09:06→17:03)
[2018-11-17] MEDS: FUROSEMIDE 40 MG TABLET PO SCH ×2 (09:06→17:04)
[2018-11-17] MEDS: metOLazone 5 MG TABLET PO SCH (09:06)
[2018-11-17] MEDS: PANTOPRAZOLE 40 MG TABLET PO SCH ×2 (09:06→21:24)
[2018-11-17] MEDS: CARVEDILOL 12.5 MG TABLET PO SCH ×2 (09:06→17:03)
[2018-11-17] MEDS: DICYCLOMINE 20 MG TABLET PO SCH ×3 (09:07→21:19)
[2018-11-17] MEDS: SODIUM CHLORIDE 0.9% 1,000 ML IV SCH (09:07)
[2018-11-17] MEDS ORDERED: MAGNESIUM CITRATE 300 ML BOTTLE PO ONE (13:00)
[2018-11-17] MEDS: HYDROCORTISONE 25 MG SUPP RECTAL SCH ×2 (17:03→21:17)
[2018-11-17] MEDS ORDERED: SPIRONOLACTONE 25 MG TABLET PO SCH (21:00)
[2018-11-17] MEDS ORDERED: LOSARTAN 25 MG TABLET PO SCH (21:00)
[2018-11-17] MEDS ORDERED: CETIRIZINE 10 MG TABLET PO SCH (21:00)
[2018-11-18] MEDS: SODIUM CHLORIDE 0.9% 1,000 ML IV SCH (05:07)
[2018-11-18] MEDS: LEVOTHYROXINE 150 MCG TABLET PO SCH (06:13)
[2018-11-18 08:23] LABS: Calcium 8.1 MG/DL (8.5-10.1); Osmolality,Calculated 275.1 MOS/KG (273-304)
[2018-11-18] MEDS: HYDROCORTISONE 25 MG SUPP RECTAL SCH (09:11)
[2018-11-18] MEDS: POTASSIUM CHLORIDE 20 MEQ TABLET PO PRN (09:13)
[2018-11-18] MEDS: POLYETHYLENE GLYCOL POWDER 17 GM PACK PO SCH (09:13)
[2018-11-18] MEDS: FUROSEMIDE 40 MG TABLET PO SCH ×2 (09:14→17:07)
[2018-11-18] MEDS: CARVEDILOL 12.5 MG TABLET PO SCH ×2 (09:14→17:06)
[2018-11-18] MEDS: DICYCLOMINE 20 MG TABLET PO SCH ×2 (09:14→17:07)
[2018-11-18] MEDS: metOLazone 5 MG TABLET PO SCH (09:14)
[2018-11-18] MEDS: PANTOPRAZOLE 40 MG TABLET PO SCH (09:14)
[2018-11-18] MEDS ORDERED: POTASSIUM CHLORIDE 20 MEQ TABLET PO ONE ×2 (10:00→16:34)
[2018-11-18 16:48] VITALS: BP 102/78
== END 2018-11-18 17:53 | disposition home or self-care (01) ==
LOC: N.EDINP 18:08 → N.ED 18:08 → SUATTDRO 22:25 → N.2E 11-17 03:34
PROVIDERS: ADMIT Internal Medicine; ATTEND Internal Medicine

== ENCOUNTER 2018-12-05 12:56 | Inpatient (IN) ==
[2018-12-05] MEDS ORDERED: ONDANSETRON 4 MG/2 ML VIAL IV STA (13:28)
[2018-12-05] MEDS ORDERED: KETOROLAC 30 MG/1 ML VIAL IV STA (13:28)
[2018-12-05 14:17] LABS: Basophils # 0.1 10*3/uL (0.0-0.2); Basophils % 0.8 % (0.0-0.8); Eosinophils # 0.2 10*3/uL (0.0-0.87); Eosinophils % 2.1 % (0.00-10.9); Hematocrit 47.1 VOL% (42.0-52.0); Hemoglobin 15.2 GM/DL (14.0-18.0); Immature Granulocytes % 0.3 %; Immature Granulocytes Absolute 0.02 #; Lymphocytes # 2.3 10*3/uL (1.4-4.0); Lymphocytes % 32.2 % (21.2-54.2); Mean Corpuscular HGB Conc 32.3 GM/DL (32-36); Mean Corpuscular Volume 94.2 FL (87-102); Mean Platelet Volume 12.3 FL (9.6-12.0); Monocytes % 7.6 % (1.7-12.7); Platelet Count 128 T/CUMM (130-400); Red Cell Distribution Width 14.7 % (9.3-17.3); White Blood Count 7.1 T/CUMM (4-12)
[2018-12-05 14:25] LABS: INR 1.5; PT Patient Result 16.2 SECS; Partial Thromboplastin Time 26.9 SECS (0-40)
[2018-12-05 14:26] LABS: Apearance,Urine CLEAR (Clear); Bacteria,Urine Occasional /HPF (Few); Bilirubin,Urine Negative (Negative); Blood, Urine Small mg/dL (Negative); Glucose,Urine (UA) Negative (Negative); Hyaline Casts,Urine 78 /LPF (0-3); Ketones,Urine 5 mg/dL (Negative); Mucus,Urine Occasional /LPF (Occasional); Nitrite,Urine Negative (Negative); Protein,Urine 100 MG/DL; RBC,Urine 4 /HPF (0-4); Squamous Epithelial Cell,Urine Occasional /HPF (0-10); Urine Color Amber (Yellow); Urine Specific Gravity 1.018 (1.001-1.035); WBC,Urine 4 /HPF (0-6)
[2018-12-05 14:38] LABS: Barbiturates Screen,Urine Negative (Negative); Benzodiazepines Screen,Urine Negative (Negative); Cannabinoid Screen,Urine Negative (Negative); Opiate Screen,Urine Negative (Negative); Phencyclidine Screen,Urine Negative (Negative)
[2018-12-05 14:46] LABS: Alanine Aminotransferase 28 U/L (16-61); Albumin 4.2 G/DL (3.4-5.0); Alkaline Phosphatase 128 U/L (45-117); Aspartate Amino Transferase 36 U/L (0-37); Blood Urea Nitrogen 18 MG/DL (7-18); Calcium 9.5 MG/DL (8.5-10.1); Glucose 99 MG/DL (74-106); Osmolality,Calculated 276.7 MOS/KG (273-304)
[2018-12-05] MEDS ORDERED: POTASSIUM BICARB EFFERVESCENT 25 MEQ TABLET PO ONE (14:49)
[2018-12-05] MEDS ORDERED: diphenhydrAMINE CAP 25 MG CAPSULE PO PRN (15:36)
[2018-12-05] MEDS ORDERED: FLUTICASONE 50 MCG NASAL SPRAY 16 GM BOTTLE BOTH NARES PRN (15:49)
[2018-12-05] MEDS ORDERED: SPIRONOLACTONE 25 MG TABLET PO SCH (18:00)
[2018-12-05] MEDS: FUROSEMIDE 40 MG TABLET PO SCH (18:34)
[2018-12-05] MEDS: DOCUSATE SODIUM 100 MG CAPSULE PO SCH (20:20)
[2018-12-05] MEDS: DICYCLOMINE 20 MG TABLET PO SCH (20:20)
[2018-12-05] MEDS: CARVEDILOL 12.5 MG TABLET PO SCH (20:20)
[2018-12-05] MEDS: LOSARTAN 25 MG TABLET PO SCH (20:20)
[2018-12-05] MEDS: ONDANSETRON 4 MG/2 ML VIAL IV PRN (20:21)
[2018-12-05] MEDS: ACETAMINOPHEN 325 MG TABLET PO PRN (20:29)
[2018-12-05] MEDS ORDERED: WARFARIN 2.5 MG TABLET PO SCH (22:30)
[2018-12-05] MEDS: WARFARIN 5 MG TABLET PO SCH (22:51)
[2018-12-06] MEDS: LEVOTHYROXINE 150 MCG TABLET PO SCH (05:31)
[2018-12-06 05:36] LABS: INR 1.4; PT Patient Result 15.4 SECS
[2018-12-06 05:37] LABS: INR 1.4; PT Patient Result 15.1 SECS
[2018-12-06 05:51] LABS: Calcium 8.7 MG/DL (8.5-10.1); Osmolality,Calculated 279.4 MOS/KG (273-304)
[2018-12-06] MEDS: POTASSIUM CHLORIDE 20 MEQ TABLET PO PRN ×4 (08:08→14:00)
[2018-12-06] MEDS: PANTOPRAZOLE 40 MG TABLET PO SCH (08:53)
[2018-12-06] MEDS: ASPIRIN EC 81 MG TABLET PO SCH (08:53)
[2018-12-06] MEDS: CALCIUM CARBONATE CHEW 500 MG TABLET PO PRN (08:53)
[2018-12-06] MEDS: DOCUSATE SODIUM 100 MG CAPSULE PO SCH ×2 (08:53→21:41)
[2018-12-06] MEDS: DICYCLOMINE 20 MG TABLET PO SCH ×3 (08:53→21:41)
[2018-12-06] MEDS: FUROSEMIDE 40 MG TABLET PO SCH ×2 (08:53→18:18)
[2018-12-06] MEDS: metOLazone 5 MG TABLET PO SCH (08:53)
[2018-12-06] MEDS: CARVEDILOL 12.5 MG TABLET PO SCH ×2 (08:53→18:17)
[2018-12-06] MEDS: POLYETHYLENE GLYCOL POWDER 17 GM PACK PO SCH (08:54)
[2018-12-06] MEDS: POTASSIUM CHLORIDE 20 MEQ TABLET PO SCH (12:25)
[2018-12-06] MEDS: PIPERACILLIN/TAZOBACTAM 3,375 MG in SODIUM CHLORIDE 0.9% 100 ML IV SCH ×2 (12:25→21:40)
[2018-12-06] MEDS: WARFARIN 5 MG TABLET PO SCH (18:17)
[2018-12-06] MEDS: SPIRONOLACTONE 25 MG TABLET PO SCH (18:17)
[2018-12-06] MEDS: LOSARTAN 25 MG TABLET PO SCH (21:40)
[2018-12-07] MEDS: PIPERACILLIN/TAZOBACTAM 3,375 MG in SODIUM CHLORIDE 0.9% 100 ML IV SCH ×2 (03:30→13:49)
[2018-12-07 04:53] LABS: Basophils % 0.7 % (0.0-0.8); Eosinophils # 0.2 10*3/uL (0.0-0.87); Eosinophils % 2.9 % (0.00-10.9); Hemoglobin 13.7 GM/DL (14.0-18.0); Immature Granulocytes % 0.2 %; Immature Granulocytes Absolute 0.01 #; Lymphocytes # 1.7 10*3/uL (1.4-4.0); Lymphocytes % 29.4 % (21.2-54.2); Mean Corpuscular HGB Conc 32.6 GM/DL (32-36); Mean Corpuscular Volume 92.3 FL (87-102); Monocytes % 8.5 % (1.7-12.7); Neutrophils % 58.3 % (38.7-73.9); Platelet Count 119 T/CUMM (130-400); Red Blood Count 4.55 MC/CUMM (3.8-5.5); Red Cell Distribution Width 14.5 % (9.3-17.3); White Blood Count 5.9 T/CUMM (4-12)
[2018-12-07 05:17] LABS: Calcium 8.8 MG/DL (8.5-10.1); Osmolality,Calculated 281.3 MOS/KG (273-304)
[2018-12-07] MEDS: LEVOTHYROXINE 150 MCG TABLET PO SCH (05:45)
[2018-12-07] MEDS: ASPIRIN EC 81 MG TABLET PO SCH (08:30)
[2018-12-07] MEDS: PANTOPRAZOLE 40 MG TABLET PO SCH (08:30)
[2018-12-07] MEDS: POTASSIUM CHLORIDE 20 MEQ TABLET PO PRN ×4 (08:30→16:34)
[2018-12-07] MEDS: DICYCLOMINE 20 MG TABLET PO SCH ×3 (08:30→23:07)
[2018-12-07] MEDS: POTASSIUM CHLORIDE 20 MEQ TABLET PO SCH ×2 (08:30→22:03)
[2018-12-07] MEDS: POLYETHYLENE GLYCOL POWDER 17 GM PACK PO SCH (08:37)
[2018-12-07] MEDS: DOCUSATE SODIUM 100 MG CAPSULE PO SCH ×2 (08:37→23:06)
[2018-12-07] MEDS: metOLazone 5 MG TABLET PO SCH (13:46)
[2018-12-07] MEDS: FUROSEMIDE 40 MG TABLET PO SCH ×2 (13:46→16:34)
[2018-12-07] MEDS: CARVEDILOL 12.5 MG TABLET PO SCH ×2 (13:47→16:34)
[2018-12-07] MEDS: CIPROFLOXACIN INJ 400 MG in PREMIX 1 EACH IV SCH (14:12)
[2018-12-07] MEDS ORDERED: WARFARIN 2.5 MG TABLET PO SCH (18:00)
[2018-12-07] MEDS: ONDANSETRON 4 MG/2 ML VIAL IV PRN (18:04)
[2018-12-07] MEDS: SPIRONOLACTONE 25 MG TABLET PO SCH (18:08)
[2018-12-07] MEDS: LACTULOSE 20 GM/30 ML UDCUP PO SCH ×2 (18:08→23:22)
[2018-12-07] MEDS: WARFARIN 3 MG TABLET PO SCH (18:09)
[2018-12-07] MEDS: LANSOPRAZOLE ODT 30 MG TABLET PO SCH (22:03)
[2018-12-07] MEDS: LOSARTAN 25 MG TABLET PO SCH (23:06)
[2018-12-08] MEDS: CIPROFLOXACIN INJ 400 MG in PREMIX 1 EACH IV SCH ×2 (01:50→15:31)
[2018-12-08 04:54] LABS: Basophils # 0.1 10*3/uL (0.0-0.2); Basophils % 0.9 % (0.0-0.8); Eosinophils # 0.2 10*3/uL (0.0-0.87); Eosinophils % 3.1 % (0.00-10.9); Hematocrit 42.2 VOL% (42.0-52.0); Hemoglobin 13.9 GM/DL (14.0-18.0); Immature Granulocytes % 0.3 %; Immature Granulocytes Absolute 0.02 #; Lymphocytes % 33.7 % (21.2-54.2); Mean Corpuscular HGB Conc 32.9 GM/DL (32-36); Mean Corpuscular Volume 91.9 FL (87-102); Mean Platelet Volume 12.7 FL (9.6-12.0); Monocytes % 11.3 % (1.7-12.7); Neutrophils % 50.7 % (38.7-73.9); Platelet Count 118 T/CUMM (130-400); Red Blood Count 4.59 MC/CUMM (3.8-5.5); Red Cell Distribution Width 14.5 % (9.3-17.3); White Blood Count 5.9 T/CUMM (4-12)
[2018-12-08 04:59] LABS: INR 1.8; PT Patient Result 19.6 SECS
[2018-12-08 05:17] LABS: Calcium 8.5 MG/DL (8.5-10.1); Osmolality,Calculated 279.4 MOS/KG (273-304)
[2018-12-08 05:23] LABS: Albumin 3.2 G/DL (3.4-5.0); Bilirubin,Direct 1.48 MG/DL (0.0-0.20); Bilirubin,Indirect 2.7 MG/DL (0.0-1.0); Bilirubin,Total 4.2 MG/DL (0.2-1.0); Total Protein 6.2 G/DL (6.4-8.3)
[2018-12-08] MEDS: POTASSIUM CHLORIDE 20 MEQ TABLET PO PRN ×5 (05:50→15:31)
[2018-12-08] MEDS: LEVOTHYROXINE 150 MCG TABLET PO SCH (05:50)
[2018-12-08] MEDS: LACTULOSE 20 GM/30 ML UDCUP PO SCH ×2 (06:28→11:22)
[2018-12-08] MEDS: FUROSEMIDE 40 MG TABLET PO SCH ×2 (08:27→15:32)
[2018-12-08] MEDS: metOLazone 5 MG TABLET PO SCH (08:27)
[2018-12-08] MEDS: CARVEDILOL 12.5 MG TABLET PO SCH (08:27)
[2018-12-08] MEDS: POTASSIUM CHLORIDE 20 MEQ TABLET PO SCH ×2 (08:27→21:04)
[2018-12-08] MEDS: DOCUSATE SODIUM 100 MG CAPSULE PO SCH ×2 (08:27→21:07)
[2018-12-08] MEDS: ASPIRIN EC 81 MG TABLET PO SCH (08:27)
[2018-12-08] MEDS: LANSOPRAZOLE ODT 30 MG TABLET PO SCH ×2 (08:27→21:05)
[2018-12-08] MEDS: POLYETHYLENE GLYCOL POWDER 17 GM PACK PO SCH (08:29)
[2018-12-08] MEDS: DICYCLOMINE 20 MG TABLET PO SCH ×3 (09:20→21:05)
[2018-12-08] MEDS ORDERED: MAGNESIUM SULF RIDER 4 GM in PREMIX 1 EACH IV PRN (12:02)
[2018-12-08] MEDS ORDERED: MAGNESIUM SULF RIDER 2 GM in PREMIX 1 EACH IV PRN (12:02)
[2018-12-08] MEDS ORDERED: POTASSIUM CHLORIDE RIDER 10 MEQ in PREMIX 1 EACH IV PRN (12:06)
[2018-12-08] MEDS: CARVEDILOL 3.125 MG TABLET PO SCH (17:29)
[2018-12-08] MEDS: SPIRONOLACTONE 100 MG TABLET PO SCH (17:29)
[2018-12-08] MEDS: WARFARIN 3 MG TABLET PO SCH (18:41)
[2018-12-08] MEDS: LOSARTAN 25 MG TABLET PO SCH (21:05)
[2018-12-09] MEDS: CIPROFLOXACIN INJ 400 MG in PREMIX 1 EACH IV SCH ×2 (02:16→13:39)
[2018-12-09] MEDS: LEVOTHYROXINE 150 MCG TABLET PO SCH (06:12)
[2018-12-09 06:30] LABS: INR 1.6; PT Patient Result 17.5 SECS
[2018-12-09 06:55] LABS: Risk Ratio 3.64
[2018-12-09] MEDS: CARVEDILOL 3.125 MG TABLET PO SCH ×2 (09:14→17:07)
[2018-12-09] MEDS: FUROSEMIDE 40 MG TABLET PO SCH ×2 (09:14→16:11)
[2018-12-09] MEDS: metOLazone 5 MG TABLET PO SCH (09:15)
[2018-12-09] MEDS: POLYETHYLENE GLYCOL POWDER 17 GM PACK PO SCH (09:15)
[2018-12-09] MEDS: DOCUSATE SODIUM 100 MG CAPSULE PO SCH ×2 (09:15→21:49)
[2018-12-09] MEDS: MAGNESIUM CHLORIDE 64 MG TABLET PO SCH ×3 (09:16→21:51)
[2018-12-09] MEDS: POTASSIUM CHLORIDE 20 MEQ TABLET PO SCH ×2 (09:17→21:51)
[2018-12-09] MEDS: LANSOPRAZOLE ODT 30 MG TABLET PO SCH ×2 (09:17→21:53)
[2018-12-09] MEDS: DICYCLOMINE 20 MG TABLET PO SCH ×3 (09:18→21:49)
[2018-12-09] MEDS: ASPIRIN EC 81 MG TABLET PO SCH (09:18)
[2018-12-09] MEDS: CALCIUM CARBONATE CHEW 500 MG TABLET PO PRN ×2 (11:58→17:20)
[2018-12-09] MEDS: ACETAMINOPHEN 325 MG TABLET PO PRN ×2 (12:50→22:50)
[2018-12-09] MEDS: POTASSIUM CHLORIDE 20 MEQ TABLET PO PRN ×3 (13:40→17:08)
[2018-12-09] MEDS: WARFARIN 3 MG TABLET PO SCH (17:07)
[2018-12-09] MEDS: SPIRONOLACTONE 100 MG TABLET PO SCH (17:07)
[2018-12-09] MEDS ORDERED: LOSARTAN 25 MG TABLET PO SCH (21:00)
[2018-12-09] MEDS: ONDANSETRON 4 MG/2 ML VIAL IV PRN (21:57)
[2018-12-10] MEDS: CIPROFLOXACIN INJ 400 MG in PREMIX 1 EACH IV SCH (01:45)
[2018-12-10 04:55] LABS: Basophils # 0.1 10*3/uL (0.0-0.2); Basophils % 0.8 % (0.0-0.8); Eosinophils # 0.2 10*3/uL (0.0-0.87); Eosinophils % 3.9 % (0.00-10.9); Hematocrit 44.9 VOL% (42.0-52.0); Hemoglobin 14.8 GM/DL (14.0-18.0); Immature Granulocytes % 0.3 %; Immature Granulocytes Absolute 0.02 #; Lymphocytes # 2.1 10*3/uL (1.4-4.0); Lymphocytes % 35.9 % (21.2-54.2); Mean Corpuscular Volume 91.8 FL (87-102); Mean Platelet Volume 13.2 FL (9.6-12.0); Monocytes % 12.1 % (1.7-12.7); Platelet Count 128 T/CUMM (130-400); Red Blood Count 4.89 MC/CUMM (3.8-5.5); Red Cell Distribution Width 14.3 % (9.3-17.3)
[2018-12-10 05:05] LABS: INR 1.5; PT Patient Result 16.1 SECS
[2018-12-10 05:27] LABS: Calcium 9.2 MG/DL (8.5-10.1); Osmolality,Calculated 273.8 MOS/KG (273-304)
[2018-12-10] MEDS: LEVOTHYROXINE 150 MCG TABLET PO SCH (06:24)
[2018-12-10] MEDS: CARVEDILOL 3.125 MG TABLET PO SCH (08:40)
[2018-12-10] MEDS: DOCUSATE SODIUM 100 MG CAPSULE PO SCH (08:41)
[2018-12-10] MEDS: DICYCLOMINE 20 MG TABLET PO SCH (08:41)
[2018-12-10] MEDS: POTASSIUM CHLORIDE 20 MEQ TABLET PO SCH (08:41)
[2018-12-10] MEDS: FUROSEMIDE 40 MG TABLET PO SCH (08:41)
[2018-12-10] MEDS: ASPIRIN EC 81 MG TABLET PO SCH (08:41)
[2018-12-10] MEDS: LANSOPRAZOLE ODT 30 MG TABLET PO SCH (08:42)
[2018-12-10] MEDS: POLYETHYLENE GLYCOL POWDER 17 GM PACK PO SCH (08:42)
[2018-12-10] MEDS: metOLazone 5 MG TABLET PO SCH (08:43)
[2018-12-10] MEDS: MAGNESIUM CHLORIDE 64 MG TABLET PO SCH ×2 (08:43)
[2018-12-10] MEDS: ACETAMINOPHEN 325 MG TABLET PO PRN (08:49)
[2018-12-10] MEDS: ONDANSETRON 4 MG/2 ML VIAL IV PRN (08:58)
[2018-12-10 12:05] VITALS: BP 97/69
== END 2018-12-10 14:49 | disposition home health service (06) | DRG 292 ==
LOC: EDUNIT# → EDBD → N.ED 12:56 → N.EDINP 12:56 → N.TELEN 18:10
PROVIDERS: ADMIT Hospitalist; ATTEND Hospitalist

== ENCOUNTER 2019-01-18 16:45 | Inpatient (IN) ==
[2019-01-18] MEDS ORDERED: MAGNESIUM SULF RIDER 4 GM in PREMIX 1 EACH IV PRN (16:55)
[2019-01-18] MEDS ORDERED: LACTULOSE 20 GM/30 ML UDCUP PO PRN (16:55)
[2019-01-18] MEDS ORDERED: diphenhydrAMINE CAP 25 MG CAPSULE PO PRN (16:55)
[2019-01-18] MEDS ORDERED: MAGNESIUM SULF RIDER 2 GM in PREMIX 1 EACH IV PRN (16:55)
[2019-01-18] MEDS ORDERED: guaiFENesin/DM ER 600-30 MG TABLET PO PRN (16:55)
[2019-01-18] MEDS ORDERED: ONDANSETRON 4 MG/2 ML VIAL IV PRN (16:55)
[2019-01-18] MEDS ORDERED: ACETAMINOPHEN 325 MG TABLET PO PRN (16:55)
[2019-01-18] MEDS ORDERED: BISACODYL 5 MG TABLET PO PRN (16:55)
[2019-01-18] MEDS ORDERED: ZALEPLON 5 MG CAPSULE PO PRN (16:55)
[2019-01-18] MEDS: FUROSEMIDE 40 MG/4 ML VIAL IV SCH (18:22)
[2019-01-18 18:37] LABS: Basophils % 0.3 % (0.0-0.8); Hematocrit 38.2 VOL% (42.0-52.0); Hemoglobin 13.1 GM/DL (14.0-18.0); Immature Granulocytes % 0.3 %; Immature Granulocytes Absolute 0.02 #; Mean Corpuscular HGB Conc 34.3 GM/DL (32-36); Mean Corpuscular Volume 90.7 FL (87-102); Mean Platelet Volume 11.9 FL (9.6-12.0); Monocytes % 5.3 % (1.7-12.7); Neutrophils % 79.1 % (38.7-73.9); Platelet Count 170 T/CUMM (130-400); Red Blood Count 4.21 MC/CUMM (3.8-5.5); Red Cell Distribution Width 17.4 % (9.3-17.3); White Blood Count 6.4 T/CUMM (4-12)
[2019-01-18 18:46] LABS: INR 1.5; PT Patient Result 16.3 SECS
[2019-01-18 18:57] LABS: Troponin I 0.063 NG/ML (0.00-0.045)
[2019-01-18] MEDS ORDERED: HYDROmorphone 2 MG TABLET PO PRN (19:06)
[2019-01-18] MEDS ORDERED: ALUM/MAG/SIMETH/LIDO VISC 1:1 30 ML BOTTLE PO ONE (20:00)
[2019-01-18 20:28] LABS: Troponin I 0.063 NG/ML (0.00-0.045)
[2019-01-18 20:30] LABS: Bilirubin,Total 4.3 MG/DL (0.2-1.0); Calcium 8.3 MG/DL (8.5-10.1); Osmolality,Calculated 269.2 MOS/KG (273-304); Total Protein 7.1 G/DL (6.4-8.3); Uric Acid 11.7 MG/DL (3.5-7.2)
[2019-01-18] MEDS: ENOXAPARIN 40 MG/0.4 ML SYRINGE SUBCUT SCH (20:31)
[2019-01-19] MEDS: FUROSEMIDE 40 MG/4 ML VIAL IV SCH ×3 (00:50→18:09)
[2019-01-19 06:24] LABS: Basophils % 0.3 % (0.0-0.8); Eosinophils % 0.2 % (0.00-10.9); Hematocrit 34.3 VOL% (42.0-52.0); Hemoglobin 11.8 GM/DL (14.0-18.0); Immature Granulocytes % 0.3 %; Immature Granulocytes Absolute 0.02 #; Lymphocytes # 1.5 10*3/uL (1.4-4.0); Lymphocytes % 22.8 % (21.2-54.2); Mean Corpuscular HGB Conc 34.4 GM/DL (32-36); Mean Corpuscular Volume 90.5 FL (87-102); Mean Platelet Volume 11.9 FL (9.6-12.0); Monocytes % 10.8 % (1.7-12.7); Neutrophils % 65.6 % (38.7-73.9); Platelet Count 160 T/CUMM (130-400); Red Blood Count 3.79 MC/CUMM (3.8-5.5); Red Cell Distribution Width 17.2 % (9.3-17.3); White Blood Count 6.6 T/CUMM (4-12)
[2019-01-19 06:28] LABS: INR 1.5; PT Patient Result 15.9 SECS
[2019-01-19 06:45] LABS: Osmolality,Calculated 274.8 MOS/KG (273-304); Thyroid Stimulating Hormone 0.685 uIU/ml (0.358-3.74)
[2019-01-19] MEDS: DOBUTamine 500 MG/250 ML PREMIX IV SCH ×2 (09:21→22:30)
[2019-01-19] MEDS ORDERED: NON-FORMULARY MEDICATION (Omeprazole 20 MG) PO SCH (09:30)
[2019-01-19] MEDS: ALUMINUM/MAGNES/SIMETH MAX STR 30 ML UDCUP PO PRN ×2 (09:37→18:09)
[2019-01-19] MEDS: PANTOPRAZOLE 40 MG TABLET PO SCH (09:38)
[2019-01-19] MEDS: POTASSIUM CHLORIDE 20 MEQ TABLET PO PRN ×3 (09:38→18:09)
[2019-01-19] MEDS: POTASSIUM CHLORIDE 20 MEQ TABLET PO SCH ×2 (11:58→21:27)
[2019-01-19] MEDS: MAGNESIUM CHLORIDE 64 MG TABLET PO SCH (11:58)
[2019-01-19] MEDS: metOLazone 5 MG TABLET PO SCH (12:42)
[2019-01-19] MEDS: HYDROmorphone 2 MG TABLET PO PRN ×2 (15:34→21:41)
[2019-01-19] MEDS: WARFARIN 3 MG TABLET PO SCH (18:34)
[2019-01-19] MEDS: CETIRIZINE 10 MG TABLET PO SCH (18:34)
[2019-01-19] MEDS: ASPIRIN EC 81 MG TABLET PO SCH (18:34)
[2019-01-19] MEDS: ENOXAPARIN 40 MG/0.4 ML SYRINGE SUBCUT SCH (21:27)
[2019-01-20] MEDS: FUROSEMIDE 40 MG/4 ML VIAL IV SCH ×3 (01:05→18:17)
[2019-01-20] MEDS: HYDROmorphone 2 MG TABLET PO PRN ×2 (03:39→19:53)
[2019-01-20 05:27] LABS: INR 1.3; PT Patient Result 14.5 SECS
[2019-01-20 05:35] LABS: Basophils % 0.7 % (0.0-0.8); Eosinophils # 0.1 10*3/uL (0.0-0.87); Eosinophils % 1.5 % (0.00-10.9); Hematocrit 36.2 VOL% (42.0-52.0); Hemoglobin 12.2 GM/DL (14.0-18.0); Immature Granulocytes % 0.3 %; Immature Granulocytes Absolute 0.02 #; Lymphocytes % 34.3 % (21.2-54.2); Mean Corpuscular HGB Conc 33.7 GM/DL (32-36); Mean Corpuscular Volume 91.6 FL (87-102); Mean Platelet Volume 12.2 FL (9.6-12.0); Monocytes % 9.3 % (1.7-12.7); Neutrophils % 53.9 % (38.7-73.9); Platelet Count 174 T/CUMM (130-400); Red Blood Count 3.95 MC/CUMM (3.8-5.5); Red Cell Distribution Width 17.3 % (9.3-17.3); White Blood Count 5.9 T/CUMM (4-12)
[2019-01-20 05:43] LABS: Osmolality,Calculated 282.1 MOS/KG (273-304)
[2019-01-20] MEDS: POTASSIUM CHLORIDE 20 MEQ TABLET PO PRN ×5 (06:18→23:20)
[2019-01-20] MEDS: LEVOTHYROXINE 150 MCG TABLET PO SCH (06:18)
[2019-01-20] MEDS ORDERED: COLCHICINE 0.6 MG CAPSULE PO ONE ×2 (07:51→11:00)
[2019-01-20] MEDS: ALUMINUM/MAGNES/SIMETH MAX STR 30 ML UDCUP PO PRN (07:57)
[2019-01-20] MEDS ORDERED: KETOROLAC 30 MG/1 ML VIAL IV ONE (08:11)
[2019-01-20] MEDS: metOLazone 5 MG TABLET PO SCH (09:44)
[2019-01-20] MEDS: POTASSIUM CHLORIDE 20 MEQ TABLET PO SCH ×2 (09:44→21:08)
[2019-01-20] MEDS: MAGNESIUM CHLORIDE 64 MG TABLET PO SCH (09:44)
[2019-01-20] MEDS: PANTOPRAZOLE 40 MG TABLET PO SCH (09:45)
[2019-01-20] MEDS: FLUTICASONE 50 MCG NASAL SPRAY 16 GM BOTTLE BOTH NARES SCH (10:19)
[2019-01-20] MEDS: DOBUTamine 500 MG/250 ML PREMIX IV SCH (11:34)
[2019-01-20] MEDS ORDERED: WARFARIN 3 MG TABLET PO ONE (18:00)
[2019-01-20] MEDS: SPIRONOLACTONE 25 MG TABLET PO SCH (19:10)
[2019-01-20] MEDS: CETIRIZINE 10 MG TABLET PO SCH (19:10)
[2019-01-20] MEDS: ASPIRIN EC 81 MG TABLET PO SCH (19:10)
[2019-01-20] MEDS: WARFARIN 3 MG TABLET PO SCH (19:13)
[2019-01-20] MEDS: ENOXAPARIN 40 MG/0.4 ML SYRINGE SUBCUT SCH (21:08)
[2019-01-21] MEDS: DOBUTamine 500 MG/250 ML PREMIX IV SCH ×2 (00:41→14:24)
[2019-01-21] MEDS: POTASSIUM CHLORIDE 20 MEQ TABLET PO PRN ×2 (01:42→03:18)
[2019-01-21] MEDS: FUROSEMIDE 40 MG/4 ML VIAL IV SCH ×3 (02:22→18:15)
[2019-01-21 06:01] LABS: Basophils % 0.4 % (0.0-0.8); Eosinophils # 0.2 10*3/uL (0.0-0.87); Eosinophils % 3.1 % (0.00-10.9); Immature Granulocytes % 0.4 %; Immature Granulocytes Absolute 0.02 #; Lymphocytes # 1.9 10*3/uL (1.4-4.0); Lymphocytes % 36.5 % (21.2-54.2); Mean Corpuscular HGB Conc 33.3 GM/DL (32-36); Mean Corpuscular Volume 91.1 FL (87-102); Mean Platelet Volume 11.7 FL (9.6-12.0); Monocytes % 10.1 % (1.7-12.7); Neutrophils % 49.5 % (38.7-73.9); Platelet Count 179 T/CUMM (130-400); Red Blood Count 3.95 MC/CUMM (3.8-5.5); Red Cell Distribution Width 17.4 % (9.3-17.3); White Blood Count 5.1 T/CUMM (4-12)
[2019-01-21 06:07] LABS: INR 1.3; PT Patient Result 13.7 SECS
[2019-01-21 06:24] LABS: Calcium 8.5 MG/DL (8.5-10.1); Osmolality,Calculated 276.5 MOS/KG (273-304)
[2019-01-21] MEDS: LEVOTHYROXINE 150 MCG TABLET PO SCH (06:31)
[2019-01-21] MEDS: PANTOPRAZOLE 40 MG TABLET PO SCH ×2 (07:58→09:46)
[2019-01-21] MEDS: FLUTICASONE 50 MCG NASAL SPRAY 16 GM BOTTLE BOTH NARES SCH (09:41)
[2019-01-21] MEDS: HYDROmorphone 2 MG TABLET PO PRN ×2 (09:44→18:28)
[2019-01-21] MEDS: LACTULOSE 20 GM/30 ML UDCUP PO SCH ×4 (09:44→20:46)
[2019-01-21] MEDS: MAGNESIUM CHLORIDE 64 MG TABLET PO SCH (09:45)
[2019-01-21] MEDS: metOLazone 5 MG TABLET PO SCH (09:46)
[2019-01-21] MEDS: COLCHICINE 0.6 MG CAPSULE PO SCH (09:46)
[2019-01-21] MEDS: POTASSIUM CHLORIDE 20 MEQ TABLET PO SCH ×2 (09:46→20:47)
[2019-01-21] MEDS: ALUMINUM/MAGNES/SIMETH MAX STR 30 ML UDCUP PO PRN (16:56)
[2019-01-21] MEDS: ASPIRIN EC 81 MG TABLET PO SCH (18:16)
[2019-01-21] MEDS: SPIRONOLACTONE 25 MG TABLET PO SCH (18:17)
[2019-01-21] MEDS: CETIRIZINE 10 MG TABLET PO SCH (18:18)
[2019-01-21] MEDS: WARFARIN 3 MG TABLET PO SCH (18:28)
[2019-01-22 04:21] LABS: Basophils % 0.6 % (0.0-0.8); Eosinophils # 0.2 10*3/uL (0.0-0.87); Eosinophils % 2.9 % (0.00-10.9); Hematocrit 38.8 VOL% (42.0-52.0); Immature Granulocytes % 0.3 %; Immature Granulocytes Absolute 0.02 #; Lymphocytes # 1.8 10*3/uL (1.4-4.0); Lymphocytes % 29.5 % (21.2-54.2); Mean Corpuscular HGB Conc 33.5 GM/DL (32-36); Mean Corpuscular Volume 91.1 FL (87-102); Mean Platelet Volume 11.7 FL (9.6-12.0); Monocytes % 10.5 % (1.7-12.7); Neutrophils % 56.2 % (38.7-73.9); Platelet Count 190 T/CUMM (130-400); Red Blood Count 4.26 MC/CUMM (3.8-5.5); Red Cell Distribution Width 17.2 % (9.3-17.3); White Blood Count 6.2 T/CUMM (4-12)
[2019-01-22 04:26] LABS: INR 1.3
[2019-01-22] MEDS: DOBUTamine 500 MG/250 ML PREMIX IV SCH ×2 (04:31→18:04)
[2019-01-22] MEDS: FUROSEMIDE 40 MG/4 ML VIAL IV SCH ×3 (04:32→17:08)
[2019-01-22 04:52] LABS: Calcium 8.9 MG/DL (8.5-10.1); Osmolality,Calculated 270.8 MOS/KG (273-304)
[2019-01-22] MEDS: LEVOTHYROXINE 150 MCG TABLET PO SCH (06:30)
[2019-01-22] MEDS: ALUMINUM/MAGNES/SIMETH MAX STR 30 ML UDCUP PO PRN ×2 (07:44→17:15)
[2019-01-22] MEDS: POTASSIUM CHLORIDE 20 MEQ TABLET PO PRN ×4 (07:49→12:04)
[2019-01-22] MEDS: POTASSIUM CHLORIDE 20 MEQ TABLET PO SCH ×3 (09:03→20:57)
[2019-01-22] MEDS: COLCHICINE 0.6 MG CAPSULE PO SCH (09:03)
[2019-01-22] MEDS: PANTOPRAZOLE 40 MG TABLET PO SCH (09:04)
[2019-01-22] MEDS: metOLazone 5 MG TABLET PO SCH (09:04)
[2019-01-22] MEDS: MAGNESIUM CHLORIDE 64 MG TABLET PO SCH (09:04)
[2019-01-22] MEDS: FLUTICASONE 50 MCG NASAL SPRAY 16 GM BOTTLE BOTH NARES SCH (09:19)
[2019-01-22] MEDS: HYDROmorphone 2 MG TABLET PO PRN ×2 (13:18→21:54)
[2019-01-22] MEDS: WARFARIN 3 MG TABLET PO SCH (17:08)
[2019-01-22] MEDS: CETIRIZINE 10 MG TABLET PO SCH (17:08)
[2019-01-22] MEDS: SPIRONOLACTONE 50 MG TABLET PO SCH (17:08)
[2019-01-22] MEDS: ASPIRIN EC 81 MG TABLET PO SCH (17:08)
[2019-01-23] MEDS: FUROSEMIDE 40 MG/4 ML VIAL IV SCH ×3 (03:12→16:41)
[2019-01-23 03:17] LABS: Basophils % 0.6 % (0.0-0.8); Eosinophils # 0.2 10*3/uL (0.0-0.87); Eosinophils % 2.9 % (0.00-10.9); Hematocrit 40.6 VOL% (42.0-52.0); Hemoglobin 13.7 GM/DL (14.0-18.0); Immature Granulocytes % 0.5 %; Immature Granulocytes Absolute 0.03 #; Lymphocytes # 1.8 10*3/uL (1.4-4.0); Lymphocytes % 28.5 % (21.2-54.2); Mean Corpuscular HGB Conc 33.7 GM/DL (32-36); Mean Platelet Volume 11.3 FL (9.6-12.0); Monocytes % 10.1 % (1.7-12.7); Neutrophils % 57.4 % (38.7-73.9); Platelet Count 209 T/CUMM (130-400); Red Blood Count 4.46 MC/CUMM (3.8-5.5); Red Cell Distribution Width 17.2 % (9.3-17.3); White Blood Count 6.2 T/CUMM (4-12)
[2019-01-23 03:29] LABS: INR 1.4; PT Patient Result 14.7 SECS
[2019-01-23 03:43] LABS: Calcium 9.2 MG/DL (8.5-10.1); Osmolality,Calculated 268.1 MOS/KG (273-304)
[2019-01-23] MEDS: DOBUTamine 500 MG/250 ML PREMIX IV SCH ×3 (06:09→20:41)
[2019-01-23] MEDS: LEVOTHYROXINE 150 MCG TABLET PO SCH (06:18)
[2019-01-23] MEDS: ALUMINUM/MAGNES/SIMETH MAX STR 30 ML UDCUP PO PRN ×2 (07:20→16:41)
[2019-01-23] MEDS: MAGNESIUM CHLORIDE 64 MG TABLET PO SCH (08:55)
[2019-01-23] MEDS: metOLazone 5 MG TABLET PO SCH (08:55)
[2019-01-23] MEDS: COLCHICINE 0.6 MG CAPSULE PO SCH (08:55)
[2019-01-23] MEDS: POTASSIUM CHLORIDE 20 MEQ TABLET PO SCH ×2 (08:55→20:40)
[2019-01-23] MEDS: FLUTICASONE 50 MCG NASAL SPRAY 16 GM BOTTLE BOTH NARES SCH (08:56)
[2019-01-23] MEDS: PANTOPRAZOLE 40 MG TABLET PO SCH (09:18)
[2019-01-23] MEDS: HYDROmorphone 2 MG TABLET PO PRN ×2 (10:39→20:41)
[2019-01-23] MEDS: POTASSIUM CHLORIDE 20 MEQ TABLET PO PRN (15:47)
[2019-01-23] MEDS: CETIRIZINE 10 MG TABLET PO SCH (17:55)
[2019-01-23] MEDS: ASPIRIN EC 81 MG TABLET PO SCH (17:55)
[2019-01-23] MEDS: WARFARIN 3 MG TABLET PO SCH (17:55)
[2019-01-23] MEDS: SPIRONOLACTONE 50 MG TABLET PO SCH (17:55)
[2019-01-24] MEDS: FUROSEMIDE 40 MG/4 ML VIAL IV SCH ×3 (01:20→17:47)
[2019-01-24 06:05] LABS: Basophils % 0.6 % (0.0-0.8); Eosinophils # 0.2 10*3/uL (0.0-0.87); Hematocrit 43.2 VOL% (42.0-52.0); Hemoglobin 14.9 GM/DL (14.0-18.0); Immature Granulocytes % 0.3 %; Immature Granulocytes Absolute 0.02 #; Lymphocytes # 1.8 10*3/uL (1.4-4.0); Lymphocytes % 28.9 % (21.2-54.2); Mean Corpuscular HGB Conc 34.5 GM/DL (32-36); Mean Corpuscular Volume 89.3 FL (87-102); Monocytes % 11.3 % (1.7-12.7); Neutrophils % 55.9 % (38.7-73.9); Platelet Count 231 T/CUMM (130-400); Red Blood Count 4.84 MC/CUMM (3.8-5.5); White Blood Count 6.4 T/CUMM (4-12)
[2019-01-24 06:22] LABS: INR 1.3; PT Patient Result 13.6 SECS
[2019-01-24 06:39] LABS: Calcium 9.6 MG/DL (8.5-10.1); Osmolality,Calculated 265.4 MOS/KG (273-304)
[2019-01-24] MEDS: LEVOTHYROXINE 150 MCG TABLET PO SCH (07:57)
[2019-01-24] MEDS: ALUMINUM/MAGNES/SIMETH MAX STR 30 ML UDCUP PO PRN ×2 (08:12→16:40)
[2019-01-24] MEDS: DOBUTamine 500 MG/250 ML PREMIX IV SCH (09:15)
[2019-01-24] MEDS: metOLazone 5 MG TABLET PO SCH (09:16)
[2019-01-24] MEDS: HYDROmorphone 2 MG TABLET PO PRN ×2 (09:16→20:31)
[2019-01-24] MEDS: FLUTICASONE 50 MCG NASAL SPRAY 16 GM BOTTLE BOTH NARES SCH (09:17)
[2019-01-24] MEDS: MAGNESIUM CHLORIDE 64 MG TABLET PO SCH (09:17)
[2019-01-24] MEDS: COLCHICINE 0.6 MG CAPSULE PO SCH (09:17)
[2019-01-24] MEDS: PANTOPRAZOLE 40 MG TABLET PO SCH (09:17)
[2019-01-24] MEDS: POTASSIUM CHLORIDE 20 MEQ TABLET PO SCH ×2 (09:17→20:30)
[2019-01-24] MEDS ORDERED: WARFARIN 5 MG TABLET PO ONE (18:00)
[2019-01-24] MEDS: SPIRONOLACTONE 50 MG TABLET PO SCH (18:07)
[2019-01-24] MEDS: ASPIRIN EC 81 MG TABLET PO SCH (18:07)
[2019-01-24] MEDS: CETIRIZINE 10 MG TABLET PO SCH (18:08)
[2019-01-25] MEDS: FUROSEMIDE 40 MG/4 ML VIAL IV SCH ×2 (01:21→09:14)
[2019-01-25 04:57] LABS: Basophils # 0.1 10*3/uL (0.0-0.2); Eosinophils # 0.2 10*3/uL (0.0-0.87); Eosinophils % 2.9 % (0.00-10.9); Hematocrit 43.8 VOL% (42.0-52.0); Hemoglobin 15.4 GM/DL (14.0-18.0); INR 1.2; Immature Granulocytes % 0.4 %; Immature Granulocytes Absolute 0.03 #; Lymphocytes # 1.5 10*3/uL (1.4-4.0); Lymphocytes % 21.2 % (21.2-54.2); Mean Corpuscular HGB Conc 35.2 GM/DL (32-36); Mean Corpuscular Volume 89.6 FL (87-102); Mean Platelet Volume 12.1 FL (9.6-12.0); Neutrophils % 63.5 % (38.7-73.9); PT Patient Result 13.4 SECS; Platelet Count 252 T/CUMM (130-400); Red Blood Count 4.89 MC/CUMM (3.8-5.5); Red Cell Distribution Width 16.8 % (9.3-17.3); White Blood Count 7.2 T/CUMM (4-12)
[2019-01-25 05:16] LABS: Calcium 9.5 MG/DL (8.5-10.1); Osmolality,Calculated 266.5 MOS/KG (273-304)
[2019-01-25] MEDS: LEVOTHYROXINE 150 MCG TABLET PO SCH (06:29)
[2019-01-25] MEDS: DOBUTamine 500 MG/250 ML PREMIX IV SCH (06:29)
[2019-01-25] MEDS: POTASSIUM CHLORIDE 20 MEQ TABLET PO SCH ×3 (09:10→20:57)
[2019-01-25] MEDS: PANTOPRAZOLE 40 MG TABLET PO SCH (09:11)
[2019-01-25] MEDS: COLCHICINE 0.6 MG CAPSULE PO SCH (09:11)
[2019-01-25] MEDS: MAGNESIUM CHLORIDE 64 MG TABLET PO SCH (09:11)
[2019-01-25] MEDS: metOLazone 5 MG TABLET PO SCH (09:11)
[2019-01-25] MEDS: FLUTICASONE 50 MCG NASAL SPRAY 16 GM BOTTLE BOTH NARES SCH (11:30)
[2019-01-25] MEDS: FUROSEMIDE 80 MG TABLET PO SCH (17:56)
[2019-01-25] MEDS ORDERED: WARFARIN 4 MG TABLET PO SCH (18:00)
[2019-01-25] MEDS: ASPIRIN EC 81 MG TABLET PO SCH (19:10)
[2019-01-25] MEDS: SPIRONOLACTONE 50 MG TABLET PO SCH (19:10)
[2019-01-25] MEDS: CETIRIZINE 10 MG TABLET PO SCH (19:11)
[2019-01-25] MEDS: CARVEDILOL 3.125 MG TABLET PO SCH (20:56)
[2019-01-25] MEDS: HYDROmorphone 2 MG TABLET PO PRN (21:01)
[2019-01-26 04:35] LABS: Basophils # 0.1 10*3/uL (0.0-0.2); Basophils % 0.9 % (0.0-0.8); Eosinophils # 0.2 10*3/uL (0.0-0.87); Eosinophils % 2.6 % (0.00-10.9); Hematocrit 46.5 VOL% (42.0-52.0); Hemoglobin 15.5 GM/DL (14.0-18.0); Immature Granulocytes % 0.5 %; Immature Granulocytes Absolute 0.04 #; Lymphocytes # 2.4 10*3/uL (1.4-4.0); Lymphocytes % 31.7 % (21.2-54.2); Mean Corpuscular HGB Conc 33.3 GM/DL (32-36); Mean Corpuscular Volume 90.5 FL (87-102); Mean Platelet Volume 11.4 FL (9.6-12.0); Monocytes % 8.4 % (1.7-12.7); Neutrophils % 55.9 % (38.7-73.9); Platelet Count 267 T/CUMM (130-400); Red Blood Count 5.14 MC/CUMM (3.8-5.5); Red Cell Distribution Width 16.9 % (9.3-17.3); White Blood Count 7.4 T/CUMM (4-12)
[2019-01-26 04:49] LABS: INR 1.3; PT Patient Result 14.6 SECS
[2019-01-26 04:56] LABS: Calcium 9.4 MG/DL (8.5-10.1); Osmolality,Calculated 270.5 MOS/KG (273-304)
[2019-01-26] MEDS: DOBUTamine 500 MG/250 ML PREMIX IV SCH (06:25)
[2019-01-26] MEDS: LEVOTHYROXINE 150 MCG TABLET PO SCH (06:32)
[2019-01-26 08:07] VITALS: BP 128/89
[2019-01-26] MEDS ORDERED: LOSARTAN 25 MG TABLET PO SCH (09:00)
[2019-01-26] MEDS: POTASSIUM CHLORIDE 20 MEQ TABLET PO SCH (09:02)
[2019-01-26] MEDS: metOLazone 5 MG TABLET PO SCH (09:02)
[2019-01-26] MEDS: PANTOPRAZOLE 40 MG TABLET PO SCH (09:03)
[2019-01-26] MEDS: COLCHICINE 0.6 MG CAPSULE PO SCH (09:03)
[2019-01-26] MEDS: MAGNESIUM CHLORIDE 64 MG TABLET PO SCH (09:03)
[2019-01-26] MEDS: FLUTICASONE 50 MCG NASAL SPRAY 16 GM BOTTLE BOTH NARES SCH (09:04)
[2019-01-26] MEDS: FUROSEMIDE 80 MG TABLET PO SCH (09:04)
[2019-01-26] MEDS: CARVEDILOL 3.125 MG TABLET PO SCH (09:04)
[2019-01-26] MEDS ORDERED: LOPERAMIDE 2 MG CAPSULE PO ONE (12:00)
== END 2019-01-26 13:05 | disposition home or self-care (01) ==
LOC: N.TELES 17:20
PROVIDERS: ADMIT Internal Medicine Interventional Cardiology; ATTEND Internal Medicine Interventional Cardiology

== ENCOUNTER 2019-03-25 15:09 | Observation (INO) ==
[2019-03-25 16:12] LABS: Basophils # 0.1 10*3/uL (0.0-0.2); Basophils % 0.4 % (0.0-0.8); Eosinophils # 0.1 10*3/uL (0.0-0.87); Eosinophils % 0.6 % (0.00-10.9); Hematocrit 34.8 VOL% (42.0-52.0); Hemoglobin 11.4 GM/DL (14.0-18.0); Immature Granulocytes % 0.5 %; Immature Granulocytes Absolute 0.06 #; Lymphocytes # 2.3 10*3/uL (1.4-4.0); Lymphocytes % 19.6 % (21.2-54.2); Mean Corpuscular HGB Conc 32.8 GM/DL (32-36); Mean Corpuscular Volume 94.8 FL (87-102); Mean Platelet Volume 12.3 FL (9.6-12.0); Monocytes % 9.5 % (1.7-12.7); Neutrophils % 69.4 % (38.7-73.9); Platelet Count 171 T/CUMM (130-400); Red Blood Count 3.67 MC/CUMM (3.8-5.5); Red Cell Distribution Width 13.2 % (9.3-17.3); White Blood Count 11.9 T/CUMM (4-12)
[2019-03-25 16:17] LABS: Apearance,Urine CLEAR (Clear); Bilirubin,Urine Negative (Negative); Blood, Urine Negative (Negative); Glucose,Urine (UA) Negative (Negative); Ketones,Urine 5 mg/dL (Negative); Mucus,Urine Occasional /LPF (Occasional); Nitrite,Urine Negative (Negative); Protein,Urine Negative; RBC,Urine 1 /HPF (0-4); Urine Color Yellow (Yellow); WBC,Urine 1 /HPF (0-6)
[2019-03-25 16:26] LABS: INR 1.7; PT Patient Result 18.1 SECS (9.6-12.2); Partial Thromboplastin Time 25.9 SECS (20.8-36.0)
[2019-03-25 16:30] LABS: Barbiturates Screen,Urine Negative (Negative); Benzodiazepines Screen,Urine Negative (Negative); Cannabinoid Screen,Urine Negative (Negative); Opiate Screen,Urine Negative (Negative); Phencyclidine Screen,Urine Negative (Negative)
[2019-03-25 16:37] LABS: Alanine Aminotransferase 48 U/L (16-61); Albumin 3.4 G/DL (3.4-5.0); Alkaline Phosphatase 110 U/L (45-117); Aspartate Amino Transferase 27 U/L (0-37); Blood Urea Nitrogen 9 MG/DL (7-18); Calcium 7.6 MG/DL (8.5-10.1); Estimated Glom Filtration Rate 138 ML/MIN; Glucose 85 MG/DL (74-106); Total Protein 6.4 G/DL (6.4-8.3); Troponin I 0.043 NG/ML (0.00-0.045)
[2019-03-25] MEDS ORDERED: POTASSIUM CHLORIDE 20 MEQ TABLET PO PRN (22:34)
[2019-03-25] MEDS ORDERED: FUROSEMIDE 40 MG TABLET PO PRN (22:34)
[2019-03-25] MEDS ORDERED: PROMETHAZINE 25 MG/1 ML VIAL IM PRN (22:34)
[2019-03-25] MEDS ORDERED: ONDANSETRON 4 MG/2 ML VIAL IV PRN (22:34)
[2019-03-25] MEDS ORDERED: MAGNESIUM SULF RIDER 2 GM in PREMIX 1 EACH IV PRN (22:34)
[2019-03-25] MEDS ORDERED: MAGNESIUM SULF RIDER 4 GM in PREMIX 1 EACH IV PRN (22:34)
[2019-03-25] MEDS: ASPIRIN EC 81 MG TABLET PO SCH (23:41)
[2019-03-25] MEDS: POTASSIUM CHLORIDE 20 MEQ TABLET PO SCH (23:41)
[2019-03-25] MEDS: VALSARTAN 80 MG TABLET PO SCH (23:41)
[2019-03-25] MEDS: ACETAMINOPHEN 325 MG TABLET PO PRN (23:55)
[2019-03-26 03:00] LABS: Basophils % 0.5 % (0.0-0.8); Eosinophils # 0.1 10*3/uL (0.0-0.87); Eosinophils % 1.4 % (0.00-10.9); Hemoglobin 10.6 GM/DL (14.0-18.0); Immature Granulocytes % 0.5 %; Immature Granulocytes Absolute 0.04 #; Lymphocytes # 2.3 10*3/uL (1.4-4.0); Lymphocytes % 26.6 % (21.2-54.2); Mean Corpuscular HGB Conc 32.1 GM/DL (32-36); Mean Corpuscular Volume 95.9 FL (87-102); Mean Platelet Volume 12.6 FL (9.6-12.0); Monocytes % 11.7 % (1.7-12.7); Neutrophils % 59.3 % (38.7-73.9); Platelet Count 167 T/CUMM (130-400); Red Blood Count 3.44 MC/CUMM (3.8-5.5); Red Cell Distribution Width 13.3 % (9.3-17.3); White Blood Count 8.5 T/CUMM (4-12)
[2019-03-26 03:41] LABS: Blood Urea Nitrogen 10 MG/DL (7-18); Calcium 7.2 MG/DL (8.5-10.1); Estimated Glom Filtration Rate 139 ML/MIN; Glucose 95 MG/DL (74-106); Osmolality,Calculated 284.8 MOS/KG (273-304); Thyroid Stimulating Hormone < 0.005 uIU/ml (0.358-3.74)
[2019-03-26] MEDS ORDERED: LEVOTHYROXINE 150 MCG TABLET PO SCH (06:00)
[2019-03-26] MEDS: COLCHICINE 0.6 MG CAPSULE PO SCH (08:25)
[2019-03-26] MEDS: VALSARTAN 80 MG TABLET PO SCH ×2 (08:25→22:04)
[2019-03-26] MEDS: POTASSIUM CHLORIDE 20 MEQ TABLET PO SCH ×2 (08:26→22:04)
[2019-03-26] MEDS: PANTOPRAZOLE 40 MG TABLET PO SCH (08:26)
[2019-03-26] MEDS: ATORVASTATIN 40 MG TABLET PO SCH (08:26)
[2019-03-26] MEDS: ACETAMINOPHEN 325 MG TABLET PO PRN (08:31)
[2019-03-26] MEDS ORDERED: LEVOTHYROXINE 125 MCG TABLET PO SCH (08:32)
[2019-03-26] MEDS: SPIRONOLACTONE 25 MG TABLET PO SCH (08:36)
[2019-03-26] MEDS: predniSONE 20 MG TABLET PO SCH (08:57)
[2019-03-26] MEDS: POTASSIUM CHLORIDE RIDER 10 MEQ in PREMIX 1 EACH IV SCH ×3 (09:09→11:38)
[2019-03-26] MEDS: FLUTICASONE 50 MCG NASAL SPRAY 16 GM BOTTLE BOTH NARES SCH (09:22)
[2019-03-26] MEDS ORDERED: WARFARIN 3 MG TABLET PO ONE (10:40)
[2019-03-26] MEDS: MAGNESIUM OXIDE 400 MG TABLET PO SCH ×2 (11:34→22:05)
[2019-03-26] MEDS: DIGOXIN 0.125 MG TABLET PO SCH (14:28)
[2019-03-26] MEDS: CETIRIZINE 10 MG TABLET PO SCH (17:03)
[2019-03-26] MEDS: ASPIRIN EC 81 MG TABLET PO SCH (22:05)
[2019-03-27 04:26] LABS: Basophils % 0.3 % (0.0-0.8); Eosinophils # 0.1 10*3/uL (0.0-0.87); Hemoglobin 10.9 GM/DL (14.0-18.0); Immature Granulocytes % 0.3 %; Immature Granulocytes Absolute 0.03 #; Lymphocytes # 1.9 10*3/uL (1.4-4.0); Mean Corpuscular Volume 94.6 FL (87-102); Mean Platelet Volume 12.7 FL (9.6-12.0); Monocytes % 9.9 % (1.7-12.7); Neutrophils % 67.5 % (38.7-73.9); Platelet Count 163 T/CUMM (130-400); Red Blood Count 3.49 MC/CUMM (3.8-5.5); Red Cell Distribution Width 13.1 % (9.3-17.3)
[2019-03-27] MEDS: ACETAMINOPHEN 325 MG TABLET PO PRN ×2 (04:45→09:02)
[2019-03-27 04:56] LABS: Calcium 8.1 MG/DL (8.5-10.1); Osmolality,Calculated 282.8 MOS/KG (273-304)
[2019-03-27] MEDS: LEVOTHYROXINE 75 MCG TABLET PO SCH (06:10)
[2019-03-27 08:06] LABS: INR 1.3; PT Patient Result 14.6 SECS (9.6-12.2)
[2019-03-27] MEDS: COLCHICINE 0.6 MG CAPSULE PO SCH (08:57)
[2019-03-27] MEDS: POTASSIUM CHLORIDE 20 MEQ TABLET PO SCH ×2 (08:57→22:09)
[2019-03-27 08:58] LABS: Troponin I 0.054 NG/ML (0.00-0.045)
[2019-03-27] MEDS: predniSONE 20 MG TABLET PO SCH (08:58)
[2019-03-27] MEDS: PANTOPRAZOLE 40 MG TABLET PO SCH (08:58)
[2019-03-27] MEDS: MAGNESIUM OXIDE 400 MG TABLET PO SCH ×2 (08:58→22:09)
[2019-03-27] MEDS: VALSARTAN 80 MG TABLET PO SCH ×2 (08:58→22:10)
[2019-03-27] MEDS: SPIRONOLACTONE 25 MG TABLET PO SCH (08:59)
[2019-03-27] MEDS: ATORVASTATIN 40 MG TABLET PO SCH (08:59)
[2019-03-27] MEDS: FLUTICASONE 50 MCG NASAL SPRAY 16 GM BOTTLE BOTH NARES SCH (09:03)
[2019-03-27] MEDS: POTASSIUM CHLORIDE RIDER 10 MEQ in PREMIX 1 EACH IV SCH ×2 (09:50→11:52)
[2019-03-27] MEDS ORDERED: FUROSEMIDE 40 MG/4 ML VIAL IV ONE (11:39)
[2019-03-27] MEDS ORDERED: oxyCODONE/ACETAMINOPHEN 5-325 MG TABLET PO PRN (11:49)
[2019-03-27] MEDS: DIGOXIN 0.125 MG TABLET PO SCH (15:36)
[2019-03-27] MEDS: ISOSORBIDE MONONITRATE 30 MG TABLET PO SCH (15:36)
[2019-03-27] MEDS: CETIRIZINE 10 MG TABLET PO SCH (17:04)
[2019-03-27] MEDS ORDERED: WARFARIN 4 MG TABLET PO SCH (18:00)
[2019-03-27] MEDS ORDERED: ENOXAPARIN 40 MG/0.4 ML SYRINGE SUBCUT SCH (21:00)
[2019-03-27] MEDS: ASPIRIN EC 81 MG TABLET PO SCH (22:09)
[2019-03-27] MEDS: FUROSEMIDE 40 MG/4 ML VIAL IV SCH (23:43)
[2019-03-28 05:28] LABS: Basophils % 0.3 % (0.0-0.8); Eosinophils # 0.1 10*3/uL (0.0-0.87); Eosinophils % 0.6 % (0.00-10.9); Hematocrit 33.8 VOL% (42.0-52.0); Hemoglobin 11.1 GM/DL (14.0-18.0); Immature Granulocytes % 0.2 %; Immature Granulocytes Absolute 0.02 #; Lymphocytes # 2.2 10*3/uL (1.4-4.0); Lymphocytes % 22.7 % (21.2-54.2); Mean Corpuscular HGB Conc 32.8 GM/DL (32-36); Mean Corpuscular Volume 94.9 FL (87-102); Mean Platelet Volume 12.9 FL (9.6-12.0); Monocytes % 9.7 % (1.7-12.7); Neutrophils % 66.5 % (38.7-73.9); Platelet Count 159 T/CUMM (130-400); Red Blood Count 3.56 MC/CUMM (3.8-5.5); Red Cell Distribution Width 13.2 % (9.3-17.3); White Blood Count 9.5 T/CUMM (4-12)
[2019-03-28] MEDS: LEVOTHYROXINE 75 MCG TABLET PO SCH (05:38)
[2019-03-28 05:53] LABS: Calcium 8.5 MG/DL (8.5-10.1); Osmolality,Calculated 287.7 MOS/KG (273-304)
[2019-03-28 05:58] LABS: Troponin I 0.032 NG/ML (0.00-0.045)
[2019-03-28] MEDS: ACETAMINOPHEN 325 MG TABLET PO PRN (08:30)
[2019-03-28 09:01] VITALS: BP 130/87
[2019-03-28] MEDS: FUROSEMIDE 40 MG/4 ML VIAL IV SCH (09:25)
[2019-03-28] MEDS: predniSONE 20 MG TABLET PO SCH (09:25)
[2019-03-28] MEDS: VALSARTAN 80 MG TABLET PO SCH (09:26)
[2019-03-28] MEDS: POTASSIUM CHLORIDE 20 MEQ TABLET PO SCH (09:26)
[2019-03-28] MEDS: COLCHICINE 0.6 MG CAPSULE PO SCH (09:27)
[2019-03-28] MEDS: ISOSORBIDE MONONITRATE 30 MG TABLET PO SCH (09:27)
[2019-03-28] MEDS: SPIRONOLACTONE 25 MG TABLET PO SCH (09:27)
[2019-03-28] MEDS: MAGNESIUM OXIDE 400 MG TABLET PO SCH (09:27)
[2019-03-28] MEDS: PANTOPRAZOLE 40 MG TABLET PO SCH (09:28)
[2019-03-28] MEDS: FLUTICASONE 50 MCG NASAL SPRAY 16 GM BOTTLE BOTH NARES SCH (09:28)
[2019-03-28] MEDS: ATORVASTATIN 40 MG TABLET PO SCH (09:28)
[2019-03-29] MEDS ORDERED: WARFARIN 7.5 MG TABLET PO SCH (17:00)
== END 2019-03-28 13:40 | disposition home health service (06) ==
LOC: EDUNIT# → EDBD → N.EDINP 15:09 → N.ED 15:09 → N.TELEN 20:44
PROVIDERS: ADMIT Internal Medicine; ATTEND Internal Medicine

== ENCOUNTER 2020-01-21 19:03 | Inpatient (IN) ==
[2020-01-21] MEDS ORDERED: ONDANSETRON 4 MG/2 ML VIAL IV STA (19:26)
[2020-01-21] MEDS ORDERED: SODIUM CHLORIDE 0.9% 1,000 ML IV STA (19:26)
[2020-01-21] MEDS ORDERED: SODIUM CHLORIDE 0.9% 500 ML IV STA (19:27)
[2020-01-21 20:15] LABS: Bacteria,Urine Occasional /HPF (Few); Hyaline Casts,Urine 33 /LPF (0-3); Mucus,Urine Few /LPF (Occasional); Sperm,Urine Occasional /HPF (Negative); Squamous Epithelial Cell,Urine Occasional /HPF (0-10); WBC,Urine <1 /HPF (0-6)
[2020-01-21 20:17] LABS: Apearance,Urine Slightly Hazy (Clear); Urine Color Brown (Yellow)
[2020-01-21 20:18] LABS: Bilirubin,Urine 4 mg/dL (Negative); Blood, Urine Negative (Negative); Glucose,Urine (UA) Negative (Negative); Ketones,Urine Negative (Negative); Nitrite,Urine Negative (Negative); Protein,Urine >=500 MG/DL
[2020-01-21 20:20] LABS: Basophils # 0.1 10*3/uL (0.0-0.2); Basophils % 0.7 % (0.0-0.8); Eosinophils % 0.1 % (0.00-10.9); Hematocrit 35.1 VOL% (42.0-52.0); Hemoglobin 11.3 GM/DL (14.0-18.0); Immature Granulocytes % 0.4 %; Immature Granulocytes Absolute 0.04 #; Lymphocytes # 1.6 10*3/uL (1.4-4.0); Lymphocytes % 15.6 % (21.2-54.2); Mean Corpuscular HGB Conc 32.2 GM/DL (32-36); Mean Corpuscular Volume 93.1 FL (87-102); Mean Platelet Volume 11.6 FL (9.6-12.0); Monocytes % 10.4 % (1.7-12.7); Neutrophils % 72.8 % (38.7-73.9); Platelet Count 169 T/CUMM (130-400); Red Blood Count 3.77 MC/CUMM (3.8-5.5); Red Cell Distribution Width 14.7 % (9.3-17.3); White Blood Count 10.2 T/CUMM (4-12)
[2020-01-21 20:39] LABS: Albumin 3.6 G/DL (3.4-5.0); Calcium 8.6 MG/DL (8.5-10.1); Osmolality,Calculated 275.2 MOS/KG (273-304)
[2020-01-21] MEDS ORDERED: GLUCAGON 1 MG VIAL IM PRN (23:44)
[2020-01-21] MEDS ORDERED: hydrALAZINE 20 MG/1 ML VIAL IV PRN (23:44)
[2020-01-21] MEDS ORDERED: ZALEPLON 5 MG CAPSULE PO PRN (23:44)
[2020-01-21] MEDS ORDERED: NICOTINE 21 MG/24 HR PATCH TRANSDERM PRN (23:44)
[2020-01-21] MEDS ORDERED: ACETAMINOPHEN 325 MG TABLET PO PRN (23:44)
[2020-01-21] MEDS ORDERED: diphenhydrAMINE CAP 25 MG CAPSULE PO PRN (23:44)
[2020-01-21] MEDS ORDERED: DEXTROSE 50% 25 GM/50 ML VIAL IV PRN (23:44)
[2020-01-21] MEDS ORDERED: CALCIUM CARBONATE CHEW 500 MG TABLET PO PRN (23:44)
[2020-01-21] MEDS ORDERED: ALBUTEROL 2.5 MG/3 ML NEB RESP TX PRN (23:44)
[2020-01-21] MEDS ORDERED: PROMETHAZINE 25 MG/1 ML VIAL IM PRN (23:44)
[2020-01-21] MEDS ORDERED: guaiFENesin/DM ER 600-30 MG TABLET PO PRN (23:44)
[2020-01-22] MEDS ORDERED: KETOROLAC 15 MG/1 ML VIAL IV PRN (00:03)
[2020-01-22 07:00] LABS: Basophils # 0.1 10*3/uL (0.0-0.2); Basophils % 0.5 % (0.0-0.8); Eosinophils % 0.1 % (0.00-10.9); Hematocrit 37.9 VOL% (42.0-52.0); Hemoglobin 12.4 GM/DL (14.0-18.0); Immature Granulocytes % 0.4 %; Immature Granulocytes Absolute 0.04 #; Lymphocytes # 1.8 10*3/uL (1.4-4.0); Lymphocytes % 16.4 % (21.2-54.2); Mean Corpuscular HGB Conc 32.7 GM/DL (32-36); Mean Corpuscular Volume 93.1 FL (87-102); Mean Platelet Volume 12.1 FL (9.6-12.0); Monocytes % 10.6 % (1.7-12.7); NRBC # 0.02 10*3/uL; Platelet Count 141 T/CUMM (130-400); Red Blood Count 4.07 MC/CUMM (3.8-5.5); Red Cell Distribution Width 15.1 % (9.3-17.3)
[2020-01-22 07:38] LABS: Calcium 8.6 MG/DL (8.5-10.1); Osmolality,Calculated 273.5 MOS/KG (273-304)
[2020-01-22] MEDS ORDERED: FUROSEMIDE 40 MG/4 ML VIAL IV SCH (08:00)
[2020-01-22 08:21] LABS: Hepatitis B Core IgM Quant 0.14 Index; Hepatitis B Surface Ag Quant < 0.10 Index; Hepatitis B Surface Ag Result Negative (Negative); Hepatitis C Virus Ab Quant 0.03 Index; Hepatitis C Virus Ab Result Negative (Negative)
[2020-01-22] MEDS ORDERED: HEPARIN 5,000 UNIT/1 ML VIAL SUBCUT SCH (09:00)
[2020-01-22 09:33] LABS: Albumin 3.7 G/DL (3.4-5.0); Bilirubin,Direct 3.71 MG/DL (0.0-0.20); Bilirubin,Total 7.7 MG/DL (0.2-1.0); Total Protein 7.2 G/DL (6.4-8.3)
[2020-01-22] MEDS ORDERED: HYDROmorphone 2 MG/1 ML VIAL IV PRN (09:56)
[2020-01-22] MEDS: PANTOPRAZOLE 40 MG TABLET PO SCH (10:00)
[2020-01-22] MEDS: DOCUSATE SODIUM 100 MG CAPSULE PO SCH ×2 (10:00→20:52)
[2020-01-22] MEDS ORDERED: DEXTROSE 5% IV SCH (10:15)
[2020-01-22] MEDS ORDERED: DEXTROSE 5% continuous IV infusion SCH (10:15)
[2020-01-22] MEDS ORDERED: MILRINONE IV SCH (10:15)
[2020-01-22] MEDS ORDERED: [UNRECOGNIZED DRUG - OTHER] IV SCH (10:15)
[2020-01-22] MEDS ORDERED: MILRINONE continuous IV infusion SCH (10:15)
[2020-01-22] MEDS ORDERED: [UNRECOGNIZED DRUG - OTHER] continuous IV infusion SCH (10:15)
[2020-01-22] MEDS: SODIUM CHLORIDE 0.9% 1,000 ML IV SCH (10:20)
[2020-01-22] MEDS ORDERED: MILRINONE 20 MG/100 ML PREMIX IV SCH (11:00)
[2020-01-22 11:34] LABS: INR 1.9; PT Patient Result 19.8 SECS (9.8-11.9)
[2020-01-22] MEDS: DOBUTamine 500 MG/250 ML PREMIX IV SCH (11:58)
[2020-01-22] MEDS: hydrALAZINE 10 MG TABLET PO SCH ×2 (14:45→20:52)
[2020-01-22] MEDS: ALUMINUM/MAGNES/SIMETH MAX STR 30 ML UDCUP PO PRN ×2 (14:45→20:41)
[2020-01-22] MEDS ORDERED: TORSEMIDE 20 MG TABLET PO SCH (17:00)
[2020-01-22] MEDS: ONDANSETRON 4 MG/2 ML VIAL IV PRN ×2 (17:40→20:45)
[2020-01-22] MEDS: ISOSORBIDE DINITRATE 10 MG TABLET PO SCH (18:17)
[2020-01-22] MEDS: RIVAROXABAN 20 MG TABLET PO SCH (18:17)
[2020-01-23] MEDS: LEVOTHYROXINE 75 MCG TABLET PO SCH (06:10)
[2020-01-23] MEDS: SODIUM CHLORIDE 0.9% 1,000 ML IV SCH ×2 (06:12→18:19)
[2020-01-23 06:47] LABS: Basophils % 0.2 % (0.0-0.8); Hematocrit 35.5 VOL% (42.0-52.0); Hemoglobin 11.8 GM/DL (14.0-18.0); Immature Granulocytes % 0.6 %; Immature Granulocytes Absolute 0.08 #; Lymphocytes # 1.6 10*3/uL (1.4-4.0); Mean Corpuscular HGB Conc 33.2 GM/DL (32-36); Monocytes % 9.7 % (1.7-12.7); Neutrophils % 78.5 % (38.7-73.9); Platelet Count 139 T/CUMM (130-400); Red Blood Count 3.86 MC/CUMM (3.8-5.5); Red Cell Distribution Width 15.4 % (9.3-17.3); White Blood Count 14.1 T/CUMM (4-12)
[2020-01-23 07:14] LABS: Albumin 3.6 G/DL (3.4-5.0); Bilirubin,Total 8.9 MG/DL (0.2-1.0); Calcium 8.5 MG/DL (8.5-10.1); Osmolality,Calculated 272.8 MOS/KG (273-304); Total Protein 7.2 G/DL (6.4-8.3)
[2020-01-23] MEDS ORDERED: FUROSEMIDE 40 MG TABLET PO SCH (09:00)
[2020-01-23] MEDS ORDERED: SPIRONOLACTONE 25 MG TABLET PO SCH (09:00)
[2020-01-23] MEDS: DOCUSATE SODIUM 100 MG CAPSULE PO SCH ×2 (09:12→21:58)
[2020-01-23] MEDS: PANTOPRAZOLE 40 MG TABLET PO SCH (09:12)
[2020-01-23] MEDS: MEGESTROL 40 MG TABLET PO SCH ×3 (09:12→21:57)
[2020-01-23] MEDS: ISOSORBIDE DINITRATE 10 MG TABLET PO SCH ×2 (09:12→17:08)
[2020-01-23] MEDS: hydrALAZINE 10 MG TABLET PO SCH ×3 (09:13→21:57)
[2020-01-23] MEDS: ALUMINUM/MAGNES/SIMETH MAX STR 30 ML UDCUP PO PRN (11:25)
[2020-01-23] MEDS: DOBUTamine 500 MG/250 ML PREMIX IV SCH (11:25)
[2020-01-23] MEDS ORDERED: SODIUM CHLORIDE 0.9% 1,000 ML IV SCH (13:30)
[2020-01-23] MEDS: cefTRIAXone 2,000 MG in SYRINGE 1 EACH IV SCH (14:39)
[2020-01-23] MEDS: RIVAROXABAN 20 MG TABLET PO SCH (17:08)
[2020-01-24 05:04] LABS: Basophils % 0.2 % (0.0-0.8); Hematocrit 35.4 VOL% (42.0-52.0); Hemoglobin 11.5 GM/DL (14.0-18.0); Immature Granulocytes % 0.7 %; Lymphocytes # 1.2 10*3/uL (1.4-4.0); Lymphocytes % 8.3 % (21.2-54.2); Mean Corpuscular HGB Conc 32.5 GM/DL (32-36); Mean Corpuscular Volume 92.7 FL (87-102); Mean Platelet Volume 12.5 FL (9.6-12.0); Monocytes % 9.5 % (1.7-12.7); NRBC # 0.02 10*3/uL; Neutrophils % 81.3 % (38.7-73.9); Platelet Count 103 T/CUMM (130-400); Red Blood Count 3.82 MC/CUMM (3.8-5.5); Red Cell Distribution Width 15.4 % (9.3-17.3); White Blood Count 14.5 T/CUMM (4-12)
[2020-01-24 05:24] LABS: INR 2.5; PT Patient Result 25.8 SECS (9.8-11.9)
[2020-01-24 05:29] LABS: Calcium 8.3 MG/DL (8.5-10.1); Osmolality,Calculated 274.2 MOS/KG (273-304)
[2020-01-24] MEDS: LEVOTHYROXINE 75 MCG TABLET PO SCH (05:46)
[2020-01-24] MEDS: DOBUTamine 500 MG/250 ML PREMIX IV SCH ×2 (07:19→14:40)
[2020-01-24 07:31] LABS: Albumin 3.3 G/DL (3.4-5.0); Bilirubin,Total 9.2 MG/DL (0.2-1.0); Calcium 8.5 MG/DL (8.5-10.1); Osmolality,Calculated 275.1 MOS/KG (273-304); Total Protein 6.4 G/DL (6.4-8.3)
[2020-01-24] MEDS: ONDANSETRON 4 MG/2 ML VIAL IV PRN ×2 (07:53→13:12)
[2020-01-24] MEDS: MEGESTROL 40 MG TABLET PO SCH ×4 (07:54→21:22)
[2020-01-24] MEDS: PANTOPRAZOLE 40 MG TABLET PO SCH ×2 (07:55→08:25)
[2020-01-24] MEDS: ISOSORBIDE DINITRATE 10 MG TABLET PO SCH ×2 (07:55→16:09)
[2020-01-24] MEDS: hydrALAZINE 10 MG TABLET PO SCH ×3 (08:25→21:45)
[2020-01-24] MEDS: DOCUSATE SODIUM 100 MG CAPSULE PO SCH ×2 (08:25→21:22)
[2020-01-24] MEDS: cefTRIAXone 2,000 MG in SYRINGE 1 EACH IV SCH (13:12)
[2020-01-24] MEDS: MEROPENEM 500 MG in SODIUM CHLORIDE 0.9% 100 ML IV SCH (16:05)
[2020-01-24] MEDS: RIVAROXABAN 20 MG TABLET PO SCH (16:08)
[2020-01-24] MEDS: SODIUM CHLORIDE 0.9% 1,000 ML IV SCH (19:20)
[2020-01-24] MEDS: SODIUM BICARBONATE 650 MG TABLET PO SCH (21:21)
[2020-01-25] MEDS: MEROPENEM 500 MG in SODIUM CHLORIDE 0.9% 100 ML IV SCH ×2 (03:12→15:47)
[2020-01-25] MEDS: DOBUTamine 500 MG/250 ML PREMIX IV SCH ×3 (04:26→19:19)
[2020-01-25] MEDS: LEVOTHYROXINE 75 MCG TABLET PO SCH (06:11)
[2020-01-25] MEDS: MEGESTROL 40 MG TABLET PO SCH ×3 (08:53→21:17)
[2020-01-25] MEDS: hydrALAZINE 10 MG TABLET PO SCH ×3 (08:54→21:17)
[2020-01-25] MEDS: SODIUM BICARBONATE 650 MG TABLET PO SCH ×2 (08:54→21:17)
[2020-01-25] MEDS: PANTOPRAZOLE 40 MG TABLET PO SCH (08:54)
[2020-01-25] MEDS: ISOSORBIDE DINITRATE 10 MG TABLET PO SCH ×2 (08:54→18:22)
[2020-01-25] MEDS: DOCUSATE SODIUM 100 MG CAPSULE PO SCH ×2 (08:54→21:17)
[2020-01-25] MEDS: ONDANSETRON 4 MG/2 ML VIAL IV PRN ×2 (10:24→21:17)
[2020-01-25 12:06] LABS: Basophils % 0.2 % (0.0-0.8); Eosinophils # 0.1 10*3/uL (0.0-0.87); Eosinophils % 0.4 % (0.00-10.9); Hematocrit 32.9 VOL% (42.0-52.0); Hemoglobin 11.2 GM/DL (14.0-18.0); Immature Granulocytes % 0.4 %; Immature Granulocytes Absolute 0.05 #; Lymphocytes % 8.9 % (21.2-54.2); Mean Corpuscular Volume 88.4 FL (87-102); Mean Platelet Volume 13.9 FL (9.6-12.0); Monocytes % 8.7 % (1.7-12.7); NRBC # 0.03 10*3/uL; Neutrophils % 81.4 % (38.7-73.9); Red Blood Count 3.72 MC/CUMM (3.8-5.5); Red Cell Distribution Width 15.6 % (9.3-17.3); White Blood Count 11.1 T/CUMM (4-12)
[2020-01-25 12:08] LABS: Platelet Count 72 T/CUMM (130-400)
[2020-01-25 12:22] LABS: Osmolality,Calculated 277.2 MOS/KG (273-304)
[2020-01-25 12:31] LABS: Albumin 3.1 G/DL (3.4-5.0); Bilirubin,Total 6.6 MG/DL (0.2-1.0); Calcium 8.1 MG/DL (8.5-10.1); Osmolality,Calculated 278.1 MOS/KG (273-304); Total Protein 6.2 G/DL (6.4-8.3)
[2020-01-25 13:02] LABS: Acanthocytes Few; Anisocytosis 1+; Schistocytes Slight
[2020-01-25 13:03] LABS: Platelet Estimate Decreased; Polychromasia Slight; Target Cells Slight
[2020-01-25] MEDS: RIVAROXABAN 20 MG TABLET PO SCH (18:22)
[2020-01-25] MEDS: SODIUM CHLORIDE 0.9% 1,000 ML IV SCH (21:00)
[2020-01-26] MEDS: MEROPENEM 500 MG in SODIUM CHLORIDE 0.9% 100 ML IV SCH ×2 (05:08→16:29)
[2020-01-26] MEDS: LEVOTHYROXINE 75 MCG TABLET PO SCH (07:05)
[2020-01-26] MEDS: DOCUSATE SODIUM 100 MG CAPSULE PO SCH ×2 (08:12→22:31)
[2020-01-26] MEDS: hydrALAZINE 10 MG TABLET PO SCH ×3 (08:12→22:31)
[2020-01-26] MEDS: ISOSORBIDE DINITRATE 10 MG TABLET PO SCH ×2 (08:12→16:30)
[2020-01-26] MEDS: SODIUM BICARBONATE 650 MG TABLET PO SCH ×2 (08:12→22:31)
[2020-01-26] MEDS: MEGESTROL 40 MG TABLET PO SCH ×3 (08:12→22:30)
[2020-01-26] MEDS: PANTOPRAZOLE 40 MG TABLET PO SCH (08:12)
[2020-01-26] MEDS: ONDANSETRON 4 MG/2 ML VIAL IV PRN (08:26)
[2020-01-26] MEDS: DOBUTamine 500 MG/250 ML PREMIX IV SCH (08:46)
[2020-01-26 10:28] LABS: Calcium 8.2 MG/DL (8.5-10.1); Osmolality,Calculated 269.9 MOS/KG (273-304)
[2020-01-26 10:39] LABS: Albumin 3.2 G/DL (3.4-5.0); Bilirubin,Direct 4.56 MG/DL (0.0-0.20); Bilirubin,Indirect 3.8 MG/DL (0.0-1.0); Bilirubin,Total 8.4 MG/DL (0.2-1.0); Total Protein 6.3 G/DL (6.4-8.3)
[2020-01-26 11:11] LABS: Basophils % 0.1 % (0.0-0.8); Eosinophils % 0.2 % (0.00-10.9); Hematocrit 33.2 VOL% (42.0-52.0); Hemoglobin 10.6 GM/DL (14.0-18.0); Immature Granulocytes % 0.6 %; Immature Granulocytes Absolute 0.06 #; Lymphocytes # 1.1 10*3/uL (1.4-4.0); Lymphocytes % 11.1 % (21.2-54.2); Mean Corpuscular HGB Conc 31.9 GM/DL (32-36); Mean Corpuscular Volume 94.1 FL (87-102); NRBC # 0.06 10*3/uL; Platelet Count 70 T/CUMM (130-400); Red Blood Count 3.53 MC/CUMM (3.8-5.5); Red Cell Distribution Width 16.3 % (9.3-17.3); White Blood Count 9.9 T/CUMM (4-12)
[2020-01-26 12:14] LABS: Burr Cells 2+; Polychromasia Few
[2020-01-26 12:15] LABS: Hypochromasia 1+; Target Cells Few
[2020-01-26 12:16] LABS: Ovalocytes Few
[2020-01-26 12:18] LABS: Anisocytosis 1+; Macrocytosis Slight
[2020-01-26 12:19] LABS: Platelet Estimate Decreased
[2020-01-26] MEDS: RIVAROXABAN 20 MG TABLET PO SCH (16:30)
[2020-01-27] MEDS: MEROPENEM 500 MG in SODIUM CHLORIDE 0.9% 100 ML IV SCH ×2 (05:30→16:27)
[2020-01-27 05:50] LABS: Basophils % 0.1 % (0.0-0.8); Eosinophils % 0.2 % (0.00-10.9); Hematocrit 33.4 VOL% (42.0-52.0); Immature Granulocytes % 0.9 %; Immature Granulocytes Absolute 0.11 #; Lymphocytes # 1.2 10*3/uL (1.4-4.0); Lymphocytes % 9.7 % (21.2-54.2); Mean Corpuscular HGB Conc 32.9 GM/DL (32-36); Mean Corpuscular Volume 90.8 FL (87-102); Monocytes % 14.6 % (1.7-12.7); NRBC # 0.16 10*3/uL; Neutrophils % 74.5 % (38.7-73.9); Platelet Count 76 T/CUMM (130-400); Red Blood Count 3.68 MC/CUMM (3.8-5.5); Red Cell Distribution Width 16.6 % (9.3-17.3); White Blood Count 12.5 T/CUMM (4-12)
[2020-01-27] MEDS: DOBUTamine 500 MG/250 ML PREMIX IV SCH (05:56)
[2020-01-27] MEDS: LEVOTHYROXINE 75 MCG TABLET PO SCH (06:30)
[2020-01-27 06:31] LABS: Albumin 3.3 G/DL (3.4-5.0); Bilirubin,Direct 5.97 MG/DL (0.0-0.20); Bilirubin,Indirect 4.7 MG/DL (0.0-1.0); Bilirubin,Total 10.7 MG/DL (0.2-1.0); Total Protein 6.5 G/DL (6.4-8.3)
[2020-01-27 06:49] LABS: Calcium 8.5 MG/DL (8.5-10.1); Osmolality,Calculated 270.1 MOS/KG (273-304)
[2020-01-27 08:30] LABS: Band Neutrophils 2 % (0-10); Eosinophils 1 % (0-10); Hypochromasia 1+; Lymphocytes 2 % (20-55); Nucleated Red Blood Cells 1 (0-5); Segmented Neutrophils 85 % (50-85); Target Cells Slight; Total Cells Counted 100
[2020-01-27 08:31] LABS: Anisocytosis 1+; Ovalocytes Slight; Platelet Estimate Decreased; Polychromasia Slight
[2020-01-27] MEDS: DOCUSATE SODIUM 100 MG CAPSULE PO SCH ×3 (09:39→22:39)
[2020-01-27] MEDS: SODIUM BICARBONATE 650 MG TABLET PO SCH (09:39)
[2020-01-27] MEDS: ISOSORBIDE DINITRATE 10 MG TABLET PO SCH ×3 (09:39→16:22)
[2020-01-27] MEDS: MEGESTROL 40 MG TABLET PO SCH ×3 (09:39→16:22)
[2020-01-27] MEDS: PANTOPRAZOLE 40 MG TABLET PO SCH (09:39)
[2020-01-27] MEDS: hydrALAZINE 10 MG TABLET PO SCH ×3 (09:40→16:22)
[2020-01-27] MEDS: HYDROmorphone 2 MG/1 ML VIAL IV PRN (18:51)
[2020-01-28] MEDS: DOBUTamine 500 MG/250 ML PREMIX IV SCH (03:02)
[2020-01-28] MEDS: DOCUSATE SODIUM 100 MG CAPSULE PO SCH ×2 (10:18→21:21)
[2020-01-28] MEDS: SODIUM CHLORIDE 0.9% 1,000 ML IV SCH (18:31)
[2020-01-28] MEDS: ONDANSETRON 4 MG/2 ML VIAL IV PRN (21:28)
[2020-01-29] MEDS: DOCUSATE SODIUM 100 MG CAPSULE PO SCH ×2 (11:54→22:33)
[2020-01-30] MEDS: DOCUSATE SODIUM 100 MG CAPSULE PO SCH ×2 (12:30→21:45)
[2020-01-30] MEDS ORDERED: TUBERCULIN SKIN TEST 0.1 ML SYRINGE INTRADERM ONE (16:43)
[2020-01-31] MEDS: LORazepam 2 MG/1 ML VIAL IV PRN ×2 (00:30→06:26)
[2020-01-31] MEDS: HYDROmorphone 2 MG/1 ML VIAL IV PRN ×2 (00:32→06:25)
[2020-01-31] MEDS: DOCUSATE SODIUM 100 MG CAPSULE PO SCH ×2 (10:49→20:48)
[2020-02-01] MEDS: DOCUSATE SODIUM 100 MG CAPSULE PO SCH (09:30)
[2020-02-01 10:10] VITALS: BP 87/53
== END 2020-02-01 10:09 | disposition hospice, inpatient (51) | DRG 441 ==
LOC: EDUNIT# → EDBD → N.ED 19:03 → N.EDINP 23:45 → SUATTDRO 23:45 → N.TELES 01-22 01:35 → N.4E 01-31 16:41
PROVIDERS: ADMIT Emergency Medicine; ATTEND Internal Medicine Geriatric Medicine

== ENCOUNTER 2020-02-01 10:08 | Inpatient (IN) ==
[2020-02-01] MEDS ORDERED: LORazepam 2 MG/1 ML VIAL IV PRN (10:11)
[2020-02-01] MEDS ORDERED: MORPHINE 4 MG/1 ML VIAL IV PRN (10:13)
[2020-02-01] MEDS ORDERED: MORPHINE 10 MG/1 ML VIAL IV PRN (10:13)
[2020-02-02 08:41] VITALS: BP 61/42
== END 2020-02-02 09:32 | disposition expired | DRG 951 ==
LOC: N.4E 10:08
PROVIDERS: ADMIT Internal Medicine; ATTEND Internal Medicine